=== PATIENT | female | born 2000 | race Caucasian/White ===

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

== ENCOUNTER 2023-10-23 12:29 | Emergency (ER) | payer BC ==
--- OUTSIDE RECORDS SUMMARY | 2023-10-23 12:33 | XMS REPORT | Continuity of Care Document ---
Author Name Unknown Address [address] [facility] [address]. [address] [place] [address] [facility] thconnect Address [address] [facility]. [address] [place] [address] Care Team Providers Care Radiology Physician Assistant Name Role Phone Unknown, Physician Primary Care Physician JESSICA Freitas Attending Clinician Unavailable Doctor Unassigned, [place] Attending Clinician U navailable 2, [facility] Lab Attending Clinician Unavailable Jessica Moctezuma MD Attending Clinician [phone] SHENA ESTEBAN Attending Clinician Unavailable Shena Esteban PA-C Attending Clinician [phone] KATELYNN Attending Clinician Unavailable DARREN SANDS Attending Clinician Unavailable ILEANA DOW Attending Clinician Unavailable Brandon Perez MD Attending Clinicia n Checo Ward MD, Leonard Attending Clinician [phone] Only, Adc Test Attending Clinician Unavailable Zina Drew MD Attending Clinician [phone] ZINA DREW Attending Clinician Unavailabl e Ultrasound, Adc Mfm Attending Clinician UnavailPauline Lynch MD Attending Clinician [phone] PAULINE PARK Attending Clinician Unavailable PAULINE PARK Attending Clinician Unavailable Ashley Pabon NP Attending Clinician [phone] Noni Gray RN Attending Clinician Unavailable MARIE CORBETT Attending Clinician Carmen Corbett MD, Marie Donis Attending Clinician + DARREN SANDS M.D. Attending Clinician Unavailab ILEANA Regalado, TALIB Attending Clinician UnavailNYDIA Porter Attending Clinician Unavailable BHAVANI LANGFORD Attending Clinician Unavailable JESSICA MOCTEZUMA Admitting Clinician Unavailable SHENA ESTEBAN Admitting Clinician Unavailable CHAPINLuciNIKOLENIKITA Admitting Clinician Unavailable Jessica Moctezuma MD Admitting Clinician [phone] Payers Payer Name Policy Type Policy Number Effective Date Expirati on Date Source [employer] PPO AND OUT OF STATE [id number] 2017 00:00:00 [place] OUT [place] [id number] 2017 00:00:00 [facility] [id number] 2021 00:00:[place] [id number] 2017 00:00:[place] [id number] 2017 00:00:00 Problems Condition Name Condition Details Condition Category Status Onset Date Resolution Date Last Treatment Date Treating Clinician Comments Source Abnormal vaginal bleeding Abnormal vaginal bleeding Disease Active 1- 00:00: 00 [facility] Allergic rhinitis Allergic rhinitis Disease Active 1-02 00:00: 00 [facility] Asthma Asthma Problem Active 2021-11 0-12 00:00: 00 [facility] Urinary tract infection Urinary tract infection Disease Active 4-18 00:00: 00 [facility] Initial encounter for management of contracept axel patch use Initial encounter for management of contracept axel patch use Disease Active - 00:00: 00 [facility] depression depression Disease Active 3- 00:00: 00 [facility] History of asthma History of asthma Disease Active 2020-11 1-16 00:00: 00 [facility] Obesity (BMI 30-39.9) Obesity (BMI 30-39.9) Disease Active 2020-11 1-15 00:00: 00 [facility] Injury of finger Injury of finger Disease Active 2018-11 2- 00:00: 00 [facility] Allergies, Adverse Reactions, Alerts Allergy Name Allergy Type Status Severity Reaction(s) Onset Date Inactive Date Treating Clinician Comments Source NO KNOWN ALLERGIE S Drug Class Active [facility] Social History Social Habit Start Date Stop Date Quantity Comments Source History of tobacco use Passive smoker [facility] of [facility] function 2023-09-06 00:00:00 2023-09-06 00:00:00 [facility] Exposure to SARS-CoV-2 (event) 2022-11-05 00:00:00 2022-11-15 14:48:00 Not sure [facility] Tobacco use and exposure 2022-09-06 00:00:00 2022-09-06 00:00:00 Smokeless tobacco non-user [facility] Alcohol intake 2022-07-06 00:00:00 2022-07-06 00:00:00 Lifetime non-drinker (finding) [facility] Sex Assigned At 2000 00:00:00 2000 00:00:00 [facility] Smoking Status Start Date Stop Date Source Never smoked tobacco [facility] Medications Ordered Medication Name Filled Medication Name Start Date Stop Date Current Medication? Ordering Clinician Indication Dosage Frequency Signature (SIG) Comments Components Source norethindro ne-e.estrad ioL-iron (LOESTRIN FE 1/20) 1 mg-20 mcg (21)/75 mg (7) tablet 2022-11 0 00:00: 00 Yes [id number] 1{tbl} Take 1 tablet by mouth in the morning. [facility] norethindro ne-e.estrad ioL-iron (LOESTRIN FE 1/20) 1 mg-20 mcg (21)/75 mg (7) tablet 2022-11 00:00: 00 Yes [id number] 1{tbl} Take 1 tablet by mouth in the morning. [facility] norethindro ne-e.estrad ioL-iron (LOESTRIN FE 1/20) 1 mg-20 mcg (21)/75 mg (7) tablet 2022-11 0 00:00: 00 Yes [id number] 1{tbl} Take 1 tablet by mouth in the morning. [facility] norethindro ne-e.estrad ioL-iron (LOESTRIN FE 1/20) 1 mg-20 mcg (21)/75 mg (7) tablet 2022-11 0 00:00: 00 Yes [id number] 1{tbl} Take 1 tablet by mouth in the morning. [facility] norelgestro min-ethinyl estradiol 150-35 mcg/24 hr patch 2021-11 0 00:00: 00 Yes [id number] 1{patch } Apply 1 Patch to skin weekly. [facility] norelgestro min-ethinyl estradiol 150-35 mcg/24 hr patch 2021-11 0 00:00: 00 Yes [id number] 1{patch } Apply 1 Patch to skin weekly. [facility] norelgestro min-ethinyl estradiol 150-35 mcg/24 hr patch 2021-11 0 00:00: 00 Yes [id number] 1{patch } Apply 1 Patch to skin weekly. [facility] norelgestro min-ethinyl estradiol 150-35 mcg/24 hr patch 2021-11 024 00:00: 00 Yes [id number] 1{patch } Apply 1 Patch to skin weekly. [facility] norelgestro min-ethinyl estradiol 150-35 mcg/24 hr patch 2021-11 0-24 00:00: 00 Yes [id number] 1{patch } Apply 1 Patch to skin weekly. [facility] norelgestro min-ethinyl estradiol 150-35 mcg/24 hr patch 2021-11 0-24 00:00: 00 Yes [id number] 1{patch } Apply 1 Patch to skin weekly. [facility] norelgestro min-ethinyl estradiol 150-35 mcg/24 hr patch 2021 0-24 00:00: 00 Yes [id number] 1{patch } Apply 1 Patch to skin weekly. [facility] norelgestro min-ethinyl estradiol 150-35 mcg/24 hr patch 2021-11 0-24 00:00: 00 Yes [id number] 1{patch } Apply 1 Patch to skin weekly. [facility] norelgestro min-ethinyl estradiol 150-35 mcg/24 hr patch 2021-11 0-24 00:00: 00 Yes [id number] 1{patch } Apply 1 Patch to skin weekly. [facility] norelgestro min-ethinyl estradiol 150-35 mcg/24 hr patch 2021-11 0-24 00:00: 00 Yes [id number] 1{patch } Apply 1 Patch to skin weekly. [facility] norelgestro min-ethinyl estradiol 150-35 mcg/24 hr patch 2021-11 0-24 00:00: 00 09-06 00:00 :00 No [id number] 1{patch } Apply 1 Patch to skin weekly. [facility] norelgestro min-ethinyl estradiol 150-35 mcg/24 hr patch 2021-11 0-24 00:00: 00 09-06 00:00 :00 No [id number] 1{patch } Apply 1 Patch to skin weekly. [facility] Nitrofurant oin&Nit. Macrocryst (MACROBID) 100 mg capsule 5-02 00:00: 00 03-21 04:59 :00 No [id number] 100mg Take 1 capsule by mouth 2 (two) times daily for 5 days. [facility] sulfamethox azole-trime thoprim 800-160 mg per tablet 4-18 00:00: 00 03-15 00:00 :00 No TAKE 1 TABLET BY MOUTH IN THE MORNING AND 1 TABLET IN THE EVENING. DO ALL THIS FOR 7 DAYS. [facility] norelgestro min-ethinyl estradiol 150-35 mcg/24 hr patch 3- 00:00: 00 Yes [id number] 1{patch } Apply 1 Patch to skin weekly. [facility] norelgestro min-ethinyl estradiol 150-35 mcg/24 hr patch 01-12 00:00: 00 Yes [id number] 1{patch } Apply 1 Patch to skin weekly. [facility] norelgestro min-ethinyl estradiol (Ortho-Evra ) 150-35 MCG/24HR 01-12 00:00: 00 Yes 1{patch } Place 1 patch on the skin. [facility] norelgestro min-ethinyl estradiol 150-35 mcg/24 hr patch 01-12 00:00: 00 09-06 00:00 :00 No [id number] 1{patch } Apply 1 Patch to skin weekly. [facility] norelgestro min-ethinyl estradiol 150-35 mcg/24 hr patch 01-12 00:00: 00 09-06 00:00 :00 No [id number] 1{patch } Apply 1 Patch to skin weekly. [facility] vitamin w/FA tablet 12-10 00:00: 00 03-15 00:00 :00 No [id number] 1{tbl} Take 1 tablet by mouth daily. [facility] docusate calcium 240 mg capsule 12-10 00:00: 00 03-15 00:00 :00 No [id number] 240mg Take 1 capsule by mouth once daily as needed for Constipati on. [facility] ferrous sulfate 325 mg (65 mg iron) tablet 12-10 00:00: 00 03-15 00:00 :00 No [id number] 325mg Take 1 tablet by mouth 2 (two) times daily. [facility] ibuprofen 600 mg tablet 12-10 00:00: 00 03-15 00:00 :00 No [id number] 600mg Take 1 tablet by mouth every 6 (six) hours as needed (Pain). Take with food or milk. [facility] albuterol sulfate HFA 90 mcg/actuati on aerosol inhaler Inhale 2 puffs every 4 hours by inhalation route as needed. for wheezing or SOB. albuterol sulfate HFA 90 mcg/actuati on aerosol inhaler Inhale 2 puffs every 4 hours by inhalation route as needed. for wheezing or SOB. No 2puff(s ) Q4H albuterol sulfate HFA 90 mcg/actuat ion aerosol inhaler Inhale 2 puffs every 4 hours by inhalation route as needed. for wheezing or SOB. [facility] h Program Bromfed DM 2 mg-30 mg-10 mg/5 mL oral syrup Take 10 mL every 4-6 hours by oral route as needed. for cough and congestion Bromfed DM 2 mg-30 mg-10 mg/5 mL oral syrup Take 10 mL every 4-6 hours by oral route as needed. for cough and congestion No 10mL Q5H Bromfed DM 2 mg-30 mg-10 mg/5 mL oral syrup Take 10 mL every 4-6 hours by oral route as needed. for cough and congestion [facility] Tamiflu 75 mg capsule Take 1 capsule twice a day by oral route for 5 days. Tamiflu 75 mg capsule Take 1 capsule twice a day by oral route for 5 days. No 1capsul e(s) BID Tamiflu 75 mg capsule Take 1 capsule twice a day by oral route for 5 days. [facility] Outre h Program Xulane 150 mcg-35 mcg/24 hr transdermal patch APPLY 1 PATCH TO SKIN WEEKLY Xulane 150 mcg-35 mcg/24 hr transdermal patch APPLY 1 PATCH TO SKIN WEEKLY No Xulane 150 mcg-35 mcg/24 hr transderma l patch APPLY 1 PATCH TO SKIN WEEKLY [facility] h Program Zithromax Z-Moshe 250 mg tablet TAKE 2 TABLETS (500 MG) BY ORAL ROUTE ONCE DAILY FOR 1 DAY THEN 1 TABLET (250 MG) BY ORAL ROUTE ONCE DAILY FOR 4 DAYS Zithromax Z-Moshe 250 mg tablet TAKE 2 TABLETS (500 MG) BY ORAL ROUTE ONCE DAILY FOR 1 DAY THEN 1 TABLET (250 MG) BY ORAL ROUTE ONCE DAILY FOR 4 DAYS No Zithromax Z-Moshe 250 mg tablet TAKE 2 TABLETS (500 MG) BY ORAL ROUTE ONCE DAILY FOR 1 DAY THEN 1 TABLET (250 MG) BY ORAL ROUTE ONCE DAILY FOR 4 DAYS [facility] Program Blisovi Fe 1/20 (28) 1 mg-20 mcg (21)/75 mg (7) tablet TAKE 1 TABLET BY MOUTH DAILY Blisovi Fe 1/20 (28) 1 mg-20 mcg (21)/75 mg (7) tablet TAKE 1 TABLET BY MOUTH DAILY No [place] Fe 1/20 (28) 1 mg-20 mcg (21)/75 mg (7) tablet TAKE 1 TABLET BY MOUTH DAILY [facility] Program fluconazole 150 mg tablet Take 1 tablet every day by oral route. fluconazole 150 mg tablet Take 1 tablet every day by oral route. No fluconazol e 150 mg tablet Take 1 tablet every day by oral route. [facility] h Program Lo Loestrin Fe 1 mg-10 mcg (24)/10 mcg (2) tablet TAKE 1 TABLET BY MOUTH EVERY DAY Lo Loestrin Fe 1 mg-10 mcg (24)/10 mcg (2) tablet TAKE 1 TABLET BY MOUTH EVERY DAY No Lo Loestrin Fe 1 mg-10 mcg (24)/10 mcg (2) tablet TAKE 1 TABLET BY MOUTH EVERY DAY [facility] Program metronidazo le 500 mg tablet Take 1 tablet twice a day by oral route for 7 days. metronidazo le 500 mg tablet Take 1 tablet twice a day by oral route for 7 days. No metronidaz ole 500 mg tablet Take 1 tablet twice a day by oral route for 7 days. [facility] Program Immunizations Ordered Immunization Name Filled Immunization Name Date Status Comments Source Influenza Virus Vaccine Quad IM, Preserv and ABX Free 6 MO-64 YRS 2022-09-06 00:00:00 Completed [facility] Influenza Virus Vaccine Quad IM, Preserv and ABX Free 6 MO-64 YRS 2022-09-06 00:00:00 Completed [facility] Influenza Virus Vaccine Quad IM, Preserv and ABX Free 6 MO-64 YRS 2022-09-06 00:00:00 Completed [facility] Influenza Virus Vaccine Quad IM, Preserv and ABX Free 6 MO-64 YRS 2022-09-06 00:00:00 Completed [facility] Influenza Virus Vaccine Quad IM, Preserv and ABX Free 6 MO-64 YRS 2022-09-06 00:00:00 Completed [facility] Influenza Virus Vaccine Quad IM, Preserv and ABX Free 6 MO-64 YRS 2022-09-06 00:00:00 Completed [facility] Influenza Virus Vaccine Quad IM, Preserv and ABX Free 6 MO-64 YRS 2022-09-06 00:00:00 Completed [facility] Influenza Virus Vaccine Quad IM, Preserv and ABX Free 6 MO-64 YRS 2022-09-06 00:00:00 Completed [facility] Influenza Virus Vaccine Quad IM, Preserv and ABX Free 6 MO-64 YRS 2022-09-06 00:00:00 Completed [facility] Influenza Virus Vaccine Quad IM, Preserv and ABX Free 6 MO-64 YRS 2022-09-06 00:00:00 Completed [facility] TDAP 2021-09-28 00:00:00 Completed [facility] Rho (d) Immune Globulin 2021-09-28 00:00:00 Completed [facility] TDAP 2021-09-28 00:00:00 Completed [facility] Rho (d) Immune Globulin 2021-09-28 00:00:00 Completed [facility] TDAP 2021-09-28 00:00:00 Completed [facility] Rho (d) Immune Globulin 2021-09-28 00:00:00 Completed [facility] TDAP 2021-09-28 00:00:00 Completed [facility] Rho (d) Immune Globulin 2021-09-28 00:00:00 Completed [facility] TDAP 2021-09-28 00:00:00 Completed [facility] Rho (d) Immune Globulin 2021-09-28 00:00:00 Completed [facility] TDAP 2021-09-28 00:00:00 Completed [facility] Rho (d) Immune Globulin 2021-09-28 00:00:00 Completed [facility] TDAP 2021-09-28 00:00:00 Completed [facility] Rho (d) Immune Globulin 2021-09-28 00:00:00 Completed [facility] TDAP 2021-09-28 00:00:00 Completed [facility] Rho (d) Immune Globulin 2021-09-28 00:00:00 Completed [facility] TDAP 2021-09-28 00:00:00 Completed [facility] Rho (d) Immune Globulin 2021-09-28 00:00:00 Completed [facility] TDAP 2021-09-28 00:00:00 Completed [facility] Rho (d) Immune Globulin 2021-09-28 00:00:00 Completed [facility] TDAP 2021-09-28 00:00:00 Completed [facility] Rho (d) Immune Globulin 2021-09-28 00:00:00 Completed [facility] Influenza Virus Vaccine 2021-09-11 00:00:00 Completed [facility] Influenza Virus Vaccine 2021-09-11 00:00:00 Completed [facility] Influenza Virus Vaccine 2021-09-11 00:00:00 Completed [facility] Influenza Virus Vaccine 2021-09-11 00:00:00 Completed [facility] Influenza Virus Vaccine 2021-09-11 00:00:00 Completed [facility] Influenza Virus Vaccine 2021-09-11 00:00:00 Completed [facility] Influenza Virus Vaccine 2021-09-11 00:00:00 Completed [facility] Influenza Virus Vaccine 2021-09-11 00:00:00 Completed [facility] Influenza Virus Vaccine 2021-09-11 00:00:00 Completed [facility] Influenza Virus Vaccine 2021-09-11 00:00:00 Completed [facility] Influenza Virus Vaccine 2021-09-11 00:00:00 Completed [facility] TDAP Unknown Completed [facility] Influenza Virus Vaccine Unknown Completed [facility] Rho (d) Immune Globulin Unknown Completed [facility] Influenza Virus Vaccine Quad IM, Preserv and ABX Free 6 MO-64 YRS (FLUCELVAX) Unknown Completed [facility] TDAP Unknown Completed [facility] Influenza Virus Vaccine Unknown Completed [facility] Rho (d) Immune Globulin Unknown Completed [facility] Influenza Virus Vaccine Quad IM, Preserv and ABX Free 6 MO-64 YRS (FLUCELVAX) Unknown Completed [facility] TDAP Unknown Completed [facility] Influenza Virus Vaccine Unknown Completed [facility] Rho (d) Immune Globulin Unknown Completed [facility] Influenza Virus Vaccine Quad IM, Preserv and ABX Free 6 MO-64 YRS (FLUCELVAX) Unknown Completed [facility] TDAP Unknown Completed [facility] Influenza Virus Vaccine Unknown Completed [facility] Rho (d) Immune Globulin Unknown Completed [facility] Influenza Virus Vaccine Quad IM, Preserv and ABX Free 6 MO-64 YRS (FLUCELVAX) Unknown Completed [facility] TDAP Unknown Completed [facility] Influenza Virus Vaccine Unknown Completed [facility] Rho (d) Immune Globulin Unknown Completed [facility] Influenza Virus Vaccine Quad IM, Preserv and ABX Free 6 MO-64 YRS (FLUCELVAX) Unknown Completed [facility] Vital Signs Vital Name Observation Time Observation Value Comments S ource Systolic blood pressure 2023-09-06 18:34:00 118 mm[Hg] [facility] Diastolic blood pressure 2023-09-06 18:34:00 75 mm[Hg] [facility] Heart rate 2023-09-06 18:34:00 89 /min [facility] Body temperature 2023-09-06 18:34:00 36.72 Raven [facility] Body height 2023-09-06 18:34:00 160 cm [facility] Body weight 2023-09-06 18:34:00 65.409 kg [facility] BMI 2023-09-06 18:34:00 25.54 kg/m2 [facility] Systolic blood pressure 2022-11-15 21:08:00 100 mm[Hg] [facility] Diastolic blood pressure 2022-11-15 21:08:00 67 mm[Hg] [facility] Heart rate 2022-11-15 21:08:00 76 /min [facility] Body temperature 2022-11-15 21:08:00 36.56 Raven [facility] Body height 2022-11-15 21:08:00 160 cm [facility] Body weight 2022-11-15 21:08:00 59.421 kg [facility] BMI 2022-11-15 21:08:00 23.21 kg/m2 [facility] Systolic blood pressure 2022-09-06 18:21:00 111 mm[Hg] [facility] Diastolic blood pressure 2022-09-06 18:21:00 73 mm[Hg] [facility] Heart rate 2022-09-06 18:21:00 73 /min [facility] Body temperature 2022-09-06 18:21:00 36.67 Raven [facility] Body height 2022-09-06 18:21:00 160 cm [facility] Body weight 2022-09-06 18:21:00 60.51 kg [facility] BMI 2022-09-06 18:21:00 23.63 kg/m2 [facility] BP Diastolic 2022-08-25 00:00:00 80 mm[Hg] [place] [facility] Height 2022-08-25 00:00:00 63 [in_i] [place] [facility] [facility] BMI (Body Mass Index) 2022-08-25 00:00:00 24.3 kg/m2 [place] [facility] BP Systolic 2022-08-25 00:00:00 114 mm[Hg] [place] [facility] Body Weight 2022-08-25 00:00:00 2194 [oz_av] [place] [facility] Body height 2022-07-06 15:49:00 160 [facility] Body weight 2022-07-06 15:49:00 58[facility]968 [facility] BMI 2022-07-06 15:49:00 23.03 [facility] pressure 2022-03-15 19:09:00 108 mm[Hg] [facility] Diastolic blood pressure 2022-03-15 19:09:00 66 mm[Hg] [facility] Heart rate 2022-03-15 19:09:00 72 /min [facility] Body temperature 2022-03-15 19:09:00 37 Raven [facility] Respiratory rate 2022-03-15 19:09:00 16 /min [facility] Body height 2022-03-15 19:09:00 160 cm [facility] Body weight 2022-03-15 19:09:00 62.313 kg [facility] BMI 2022-03-15 19:09:00 24.33 kg/m2 [facility] Procedures Procedure Date / Time Performed Performing Clinician Source [facility] PATIENT FINANCIAL POLICY 2023-09-06 18:21:27 Doctor Unassigned, [place] [facility] POCT TEST 2023-09-06 00:00:00 Jessica Moctezuma [facility] US PELVIS COMPLETE WITH TRANSVAGINAL 2022-11-19 21:46:55 Shena Esteban [facility] ASSIGNMENT OF BENEFITS 2022-11-15 20:47:18 Docto r Unassigned, [place] [facility] POCT TEST 2022-11-15 00:00:00 Anselmo Esteban [facility] FLU VACC ([id number]), 6 MO-64 YRS, .5ML, IM, QUAD (FLUCELVAX) 2022-09-06 18:33:10 Jessica Moctezuma [facility] CONSENT FOR CONTRACEPTION 2022-09-06 05:01:00 Doctor Unassigned, [place] [facility] POCT TEST 2022-09-06 00:00:00 Jessica Moctezuma [facility] POCT URINALYSIS W/O SPECIFIC GRAVITY 2022-03-15 00:00:00 Jessica Moctezuma [facility] Plan of Care Planned Activity Planned Date Details Comments Source Diagnostic Test Pending 2022-08-25 00:00:00 influenza virus A + B and SARS CoV 2 (COVID-19) and RSV RNA panel, DAVE+probe, respiratory specimen [code = influenza virus A + B and SARS CoV 2 (COVID-19) and RSV RNA panel, DAVE+probe, respiratory specimen] [facility] Diagnostic Test Pending 2022-08-25 00:00:00 rapid strep group A, throat [code = rapid strep group A, throat] [facility] Encounters Start Date/Time End Date/Time Encounter Type Admission Type Attending Clinicians Care Facility Care Department Encounter ID Source 2022-08-23 06:51:12 Outpatient [facility] [id number] [facility] 2022-07-22 12:04:36 Outpatient [facility] [id number] [facility] 2022-07-09 11:17:07 Outpatient [facility] [id number] [facility] 2022-07-06 09:49:13 Outpatient [facility] [id number] [facility] 2022-07-01 17:39:17 Outpatient [facility] [id number] [facility] 2022-06-28 11:10:49 Outpatient [facility] [id number] [facility] 2021-11-25 16:52:[address] [facility] KACEY [id number] [facility] 2021-10-08 19:10:[address] [facility] [id number] [facility] 2023-09-07 00:00:00 2023-09-07 00:00:00 Patient Secure Msg Doctor Unassigned, [place] [facility] [id number] [facility] 2023-09-06 14:15:00 2023-09-06 14:30:00 Swimming Pool Service Technician Visit 2, Adc Lab Jessica Moctezuma [facility] [id number] [facility] 2023-09-06 13:30:00 2023-09-06 13:48:51 Outpatient R JESSICA MOCTEZUMA [facility] [id number] [facility] 2023-09-06 13:30:00 2023-09-06 13:48:51 Office Visit Jessica Moctezuma [place] [id number] [facility] 2023-09-06 00:00:00 2023-09-06 00:00:00 Orders Only Doctor Unassigned, [place] [facility] [id number] [facility] 2022-11-22 00:00:00 2022-11-22 00:00:00 Telephone Jessica Moctezuma [facility] 1.2.840.114 350.1.13.10 4.2.7.2.686 [id number] 134 [id number] [facility] 2022-11-19 14:53:19 2022-11-19 23:59:00 Outpatient German ESTEBAN SHENA [facility] [id number] [facility] 2022-11-19 14:53:19 2022-11-19 23:59:00 Hospital Encounter Digna [facility] 1.2.840.114 350.1.13.10 4.2.7.2.686 [id number] [facility] 2022-11-15 15:00:00 2022-11-15 15:25:06 Office Visit Digna [facility] 1.2.840.114 350.1.13.10 4.2.7.2.686 [id number] [facility] 2022-11-15 15:00:00 2022-11-15 15:25:06 Outpatient German ESTEBAN [facility] [id number] [facility] 2022-11-15 00:00:00 2022-11-15 00:00:00 Orders Only Doctor Unassigned, [place] [facility] 1.2.840.114 350.1.13.10 4.2.7.2.686 [id number] [facility] 2022-11-15 00:00:00 2022-11-15 00:00:00 Telephone Shena Esteban [facility] 1.2.840.114 350.1.13.10 4.2.7.2.686 [id number] 134 [id number] [facility] 2022-09-06 14:30:00 2022-09-06 14:45:00 Swimming Pool Service Technician Visit 2, Adc Lab Jessica Moctezuma [facility] BUILDING 1.2.840.114 350.1.13.10 4.2.7.2.686 [id number] [facility] 2022-09-06 13:30:00 2022-09-06 14:13:20 Outpatient R JESSICA MOCTEZUMA [facility] [id number] [facility] 2022-09-06 13:30:00 2022-09-06 14:13:20 Office Visit Jessica Moctezuma [facility] 1.2.840.114 350.1.13.10 4.2.7.2.686 [id number] 134 [id number] [facility] 2022-09-06 00:00:00 2022-09-06 00:00:00 Orders Only Doctor Unassigned, [place] [facility] 1.2.840.114 350.1.13.10 4.2.7.2.686 [id number] [facility] 2022-08-28 00:00:00 2022-08-28 00:00:00 Outpatient LISTER_MELI [facility] [id number] [facility] 2022-08-25 00:00:00 2022-08-25 00:00:00 Outpatient LISTER_MELI [facility] [id number] [facility] 2022-08-25 00:00:00 2022-08-25 00:00:00 Osmani Mejia: [address] [place] [address] , Ph. [facility] [id number] Kathrine pond [facility] 2022-07-26 15:00:00 2022-07-26 15:00:00 Outpatient DARREN SANDS [facility] [id number] [facility] 2022-07-06 00:00:00 2022-07-06 11:40:12 Outpatient [facility] [id number] [facility] 2022-07-06 10:30:00 2022-07-06 11:38:32 Office Visit Darren Sands [facility] [place] 1..840.114 350.1.13.58 9.2.7.2.686 [id number] [facility] 2022-06-29 11:00:00 2022-06-29 11:00:00 Outpatient ILEANA DOW [facility] [id number] [facility] 2022-03-15 13:45:00 2022-03-15 14:40:48 Outpatient R JESSICA MOCTEZUMA [facility] [id number] [facility] 2022-03-15 13:45:00 2022-03-15 14:40:48 Office Visit Jessica Moctezuma [facility] 1..840.114 350.1.13.10 4.2.7.2.686 [id number] [facility] 2022-03-15 13:45:00 2022-03-15 14:40:48 Outpatient R JESSICA MOCTEZUMA [facility] [id number] [facility] 2022-03-15 00:00:00 2022-03-15 00:00:00 Telephone Jessica Moctezuma [facility] 1..840.114 350.1.13.10 4.2.7.2.686 [id number] [facility] 2022-03-11 00:00:00 2022-03-11 00:00:00 Refill Jessica Moctezuma [facility] 1.284.114 350.1.13.10 4.2.7.2.686 [id number] [facility] 2022-03-08 02:38:00 2022-03-08 02:38:00 Outpatient LISTER_MELI [facility] [id number] [facility] 2022-02-16 13:45:00 2022-02-16 14:01:10 Office Visit Jessica Moctezuma [facility] 1.284.114 350.1.13.10 4.2.7.2.686 [id number] [facility] 2022-02-16 13:45:00 2022-02-16 14:01:10 Outpatient N JESSICA MOCTEZUMA [facility] [id number] [facility] 2022-02-16 13:45:00 2022-02-16 13:45:00 Outpatient N JESSICA MOCTEZUMA [facility] [id number] [facility] 2022-01-12 13:00:00 2022-01-12 13:16:10 Outpatient R JESSICA MOCTEZUMA [facility] [id number] [facility] 2022-01-12 13:00:00 2022-01-12 13:16:10 Routine Visit Jessica Moctezuma [facility] 1.284.114 350.1.13.10 4.2.7.2.686 [id number] 134 [id number] [facility] 2022-01-12 00:00:00 2022-01-12 00:00:00 Orders Only Doctor Unassigned, [place] [facility] 1.84.114 350.1.13.10 4.2.7.2.686 [id number] [facility] 2021-12-08 11:50:00 2021-12-10 17:30:00 Inpatient P JESSICA MOCTEZUMA [facility] KACE[facility] [id number] [facility] 2021-12-08 11:50:00 2021-12-10 17:30:00 Hospital Encounter Jessica Moctezuma [facility] 1.2.840.114 350.1.13.10 4.2.7.2.686 [id number] [facility] 2021-12-08 11:50:00 2021-12-10 17:30:00 Inpatient P JESSICA MOCTEZUMA [facility] [id number] [facility] 2021-12-09 05:52:00 2021-12-09 17:02:00 Anesthesia Event Brandon Britt Leonard [facility] 1.2.840.114 350.1.13.10 4.2.7.2.686 [id number] [facility] 2021-12-07 10:30:00 2021-12-07 10:45:00 Laboratory Only Only, Adc Test Alyssa [facility] 1.2.840.114 350.1.13.10 4.2.7.2.686 [id number] [facility] 2021-12-07 10:30:00 2021-12-07 10:30:00 Outpatient German TURNERMIGUEL ZINA [facility] [id number] [facility] 2021-12-07 10:30:00 2021-12-07 10:30:00 Outpatient German [facility]IGUEL [facility] [id number] [facility] 2021-12-03 12:07:00 2021-12-03 17:00:00 Outpatient P JESSICA MOCTEZUMA [facility] [id number] [facility] 2021-12-03 12:07:00 2021-12-03 17:00:00 Hospital Encounter Jessica Moctezuma [facility] 1.2.840.114 350.1.13.10 4.2.7.2.686 [id number] [facility] 2021-12-03 00:00:00 2021-12-03 00:00:00 Telephone Jessica Moctezuma [facility] 1.2.840.114 350.1.13.10 4.2.7.2.686 [id number] 134 [id number] [facility] 2021-12-02 11:00:00 2021-12-02 11:23:28 Outpatient R JESSICA MOCTEZUMA [facility] [id number] [facility] 2021-12-02 11:00:00 2021-12-02 11:23:28 Routine Visit Jessica Moctezuma [facility] 1.2.840.114 350.1.13.10 4.2.7.2.686 [id number] [facility] 2021-12-01 10:15:00 2021-12-01 11:00:00 Swimming Pool Service Technician Visit Ultrasound, Adc Pauline Hill [facility] 1.2.840.114 350.1.13.10 4.2.7.2.686 [id number] 134 [id number] [facility] 2021-12-01 10:15:00 2021-12-01 10:54:25 Swimming Pool Service Technician Visit Ultrasound, Adc Pauline Hill [facility] 1.2.840.114 350.1.13.10 4.2.7.2.686 [id number] 134 [id number] [facility] 2021-12-01 10:15:00 2021-12-01 10:15:00 Outpatient P PAULINE PARK SHANNON [facility] [id number] [facility] 2021-11-26 13:45:00 2021-11-26 14:16:01 Outpatient R JESSICA MOCTEZUMA [facility] [id number] [facility] 2021-11-26 13:45:00 2021-11-26 14:16:01 Routine Visit Jessica Moctezuma [facility] 1.20.114 350.1.13.10 4.2.7.2.686 [id number] 134 [id number] [facility] 2021-11-22 00:32:00 2021-11-22 07:05:00 [facility] [id number] [facility] 2021-11-22 00:32:00 2021-11-22 07:05:00 Emergency Drever, [facility] 1.20.114 350.1.13.10 4.2.7.2.686 [id number] [facility] 2021-11-19 14:00:00 2021-11-19 14:00:00 Swimming Pool Service Technician Visit 2, Adc Lab Jessica Moctezuma [facility] BUILDING 1.2.114 350.1.13.10 4.2.7.2.686 [id number] [facility] 2021-11-19 13:00:00 2021-11-19 13:49:11 Outpatient R JESSICA MOCTEZUMA [facility] [id number] [facility] 2021-11-19 13:00:00 2021-11-19 13:49:11 Routine Visit Jessica Moctezuma [facility] BUILDING 1.2.114 350.1.13.10 4.2.7.2.686 [id number] 134 [id number] [facility] 2021-11-19 00:00:00 2021-11-19 00:00:00 Orders Only Doctor Unassigned, [place] [facility] 1.20.114 350.1.13.10 4.2.7.2.686 [id number] [facility] 2021-11-11 14:50:00 2021-11-11 19:52:00 Outpatient P JESSICA MOCTEZUMA [facility] [id number] [facility] 2021-11-11 14:50:00 2021-11-11 19:52:00 Hospital Encounter Jessica Moctezuma [facility] 1.2.840.114 350.1.13.10 4.2.7.2.686 [id number] [facility] 2021-11-11 00:00:00 2021-11-11 00:00:00 Patient Secure Noni Davis [facility] 1.2.840.114 350.1.13.10 4.2.7.2.686 [id number] 134 [id number] [facility] 2021-11-11 00:00:00 2021-11-11 00:00:00 Telephone Jessica Moctezuma [facility] 1.2.840.114 350.1.13.10 4.2.7.2.686 [id number] 134 [id number] [facility] 2021-11-09 11:49:00 2021-11-09 16:12:00 Outpatient X JESSICA MOCTEZUMA [facility] [id number] [facility] 2021-11-09 11:49:00 2021-11-09 16:12:00 Emergency Jessica Moctezuma [facility] 1.2.840.114 350.1.13.10 4.2.7.2.686 [id number] [facility] 2021-11-05 13:15:00 2021-11-05 14:03:39 Outpatient R JESSICA MOCTEZUMA [facility] [id number] [facility] 2021-11-05 13:15:00 2021-11-05 14:03:39 Routine Visit Jessica Moctezuma [facility] 1.2.840.114 350.1.13.10 4.2.7.2.686 [id number] [facility] 2021-11-03 10:00:00 2021-11-03 10:33:52 Outpatient P MARIE CORBETT [facility] [id number] [facility] 2021-11-03 10:00:00 2021-11-03 10:33:52 Swimming Pool Service Technician Visit Ultrasound, Adc Mfm Marie Corbett Ikuvbogitaqueria [facility] 1.2.840.114 350.1.13.10 4.2.7.2.686 [id number] 134 [id number] [facility] 2021-10-22 10:45:00 2021-10-22 11:10:37 Outpatient R JESSICA MOCTEZUMA [facility] [id number] [facility] 2021-10-22 10:15:54 2021-10-22 11:10:37 Routine Visit Jessica Moctezuma [facility] 1.2.840.114 350.1.13.10 4.2.7.2.686 [id number] [facility] 2021-10-20 00:00:00 2021-10-20 00:00:00 Orders Only Doctor Unassigned, [place] [facility] 1.2.840.114 350.1.13.10 4.2.7.2.686 [id number] [facility] 2021-10-12 15:45:00 2021-10-12 15:08:48 Outpatient R RHIANNA JESSICA [facility] [id number] [facility] 2021-10-12 15:45:00 2021-10-12 15:08:48 [facility] [id number] [facility] 2021-10-12 14:48:06 2021-10-12 15:08:48 [facility]ine [facility] 1.2.840.114 350.1.13.10 4.2.7.2.686 [id number] [facility] 2021-10-08 14:38:00 2021-10-08 19:07:00 Outpatient P JESSICA MOCTEZUMA [facility] [id number] [facility] 2021-10-08 14:38:00 2021-10-08 19:07:00 [facility] [id number] [facility] 2021-10-08 14:38:00 2021-10-08 19:07:00 Hospital Encounter Jessica Moctezuma [facility] 1.2.840.114 350.1.13.10 4.2.7.2.686 [id number] [facility] 2021-10-08 00:00:00 2021-10-08 00:00:00 Orders Only Doctor Unassigned, [place] [facility] 1.2.840.114 350.1.13.10 4.2.7.2.686 [id number] [facility] 2021-09-30 00:00:00 2021-09-30 00:00:00 Telephone Jessica Moctezuma [facility] 1.2.840.114 350.1.13.10 4.2.7.2.686 [id number] [facility] 2021-09-28 14:00:00 2021-09-28 15:08:28 Outpatient R JESSICA MOCTEZUMA [facility] [id number] [facility] 2021-09-28 13:06:12 2021-09-28 15:08:28 Initial Visit Jessica Moctezuma [facility] 1.2.840.114 350.1.13.10 4.2.7.2.686 [id number] 134 [id number] [facility] 2021-09-28 00:00:00 2021-09-28 00:00:00 Orders Only Doctor Unassigned, [place] [facility] 1.2.840.114 350.1.13.10 4.2.7.2.686 [id number] [facility] 2021-09-22 00:00:00 2021-09-22 00:00:00 Telephone Jessica Moctezuma [facility] 1.2.840.114 350.1.13.10 4.2.7.2.686 [id number] [facility] 2021-09-14 00:00:00 2021-09-14 00:00:00 Orders Only Doctor Unassigned, [place] [facility] 1.2.840.114 350.1.13.10 4.2.7.2.686 [id number] [facility] 2021-08-25 00:00:00 2021-08-25 00:00:00 Orders Only Doctor Unassigned, [place] [facility] 1.2.840.114 350.1.13.10 4.2.7.2.686 [id number] [facility] 2021-02-08 11:52:00 2021-02-08 11:52:00 Outpatient CHAPIN_NIKOLEI MAN[facility]IND[facility] [id number] [facility] 2021-02-06 02:51:00 2021-02-06 02:51:00 Outpatient CHAPIN_NIKOLEI [facility] [id number] [facility] 2021-02-06 00:00:00 2021-02-06 00:00:00 Sherrill Perez, MEAT SUPERVISOR: [address], [place] [address] , Ph. [facility] SKIDDER OPERATOR [id number] Kathrine da [facility] h Program 2018-07-26 16:30:00 2018-07-26 16:30:00 Appointmen t; DARREN SANDS M.D. SHAH, VISHAL, M.D. [facility] [id number] [facility] 2018-06-20 08:15:00 2018-06-20 08:15:00 Appointmen t; DARREN SANDS M.D. SHAH, VISHAL, M.D. [facility] [id number] [facility] 2018-04-18 08:15:00 2018-04-18 08:15:00 Appointmen t; ILEANA DOW NP MCDOUGALL, SEAN, NP [facility] [id number] [facility] 2018-03-07 08:15:00 2018-03-07 08:15:00 Appointmen t; ILEANA DOW NP MCDOUGALL, SEAN, NP [facility] [id number] [facility] 2018-02-06 08:15:00 2018-02-06 08:15:00 Appointmen t; DARREN SANDS M.D. SHAH, VISHAL, M.D. [facility] [id number] [facility] 2018-01-20 09:15:00 2018-01-20 09:15:00 Appointmen t; DARREN SANDS M.D. SHAH, VISHAL, M.D. [facility] [id number] [facility] 2017-12-28 15:15:00 2017-12-28 15:15:00 Appointmen t; DARREN SANDS M.D. SHAH, VISHAL, M.D. [facility]TP [id number] [facility] 2017-08-23 13:45:00 2017-08-23 13:45:00 Appointmen t; NYDIA LINK NELSON [facility] [id number] [facility] 2017-07-12 10:30:00 2017-07-12 10:30:00 Appointmen t; DARREN SANDS M.D. SHAH, VISHAL, M.D. [facility] [id number] [facility] 2017-05-19 13:30:00 2017-05-19 13:30:00 DARREN Malin M.D. SHAH, VISHAL, M.D. [facility] [id number] [facility] 2017-05-06 11:00:00 2017-05-06 11:00:00 BHAVANI Lang JEFFREY [facility] [id number] [facility] Results Test Description Test Time Test Comments Results Result Co mments Source [facility] [id number] 18:35:00* Test Item Value Reference Range Interpretation Comme nts POCT PREG (test code = 1605) Negative On board controls acceptable with C Line (test code = 3574) Yes POCT PREG LOT # (test code = 3575) POCT PREG TEST DATE ( test code = 3576) [facility] [id number] 21:27:00* Test Item Value Reference Range Interpretation Comme nts POCT PREG (test code = 1605) Negative On board controls acceptable with C Line (test code = 3574) Yes POCT PREG LOT # (test code = 3575) POCT PREG TEST DATE ( test code = 3576) [facility] [id number] 21:27:00* Test Item Value Reference Range Interpretation Comme nts POCT PREG (test code = 1605) Negative On board controls acceptable with C Line (test code = 3574) Yes POCT PREG LOT # (test code = 3575) POCT PREG TEST DATE ( test code = 3576) [facility] [id number] 19:11:00* Test Item Value Reference Range Interpretation Comme nts POCT PREG (test code = 1605) Negative On board controls acceptable with C Line (test code = 3574) Yes POCT PREG LOT # (test code = 3575) POCT PREG TEST DATE ( test code = 3576) [facility] [id number] 19:11:00* Test Item Value Reference Range Interpretation Comme nts POCT PREG (test code = 1605) Negative On board controls acceptable with C Line (test code = 3574) Yes POCT PREG LOT # (test code = 3575) POCT PREG TEST DATE ( test code = 3576) [facility] URINALYSIS W/O SPECIFIC [id number] 19:13:00* Test Item Value Reference Range Interpretation Comme nts POCT PH U (test code = 3254) 6 mg/dl 5-8 POCT U LEUK EST (test code = 3263) 1+ Negative - Negative POCT U NIT (test code = 3262) negative Negative - Negati ve POCT U PROT (test code = 3259) negative Negative - Negat axel POCT U GLU (test code = 3256) negative Negative - Negati ve POCT U KETONE (test code = 3258) negative Negative - Neg ative POCT U BLD (test code = 3257) negative Negative - Negati ve [facility]
[2023-10-23 13:56] LABS: Absolute Lymphocytes (CBC) 2.7 K/uL (0.7-4.9); Hematocrit 41.2 % (36.0-45.0); Lymphocytes % 31.7 % (15.3-44.8); MCV 88.3 fL (80-100); MPV 8.3 fL (7.6-11.3); Platelets 236 thou/uL (152-406); RBC Red Blood Cell Count 4.67 M/uL (3.86-4.86)
[2023-10-23] MEDS ORDERED: FAMOTIDINE 20 MG/2 ML VIAL IV ONE (14:04)
[2023-10-23] MEDS ORDERED: ONDANSETRON 4 MG/2 ML VIAL ONE (14:04)
[2023-10-23 14:07] LABS: Specific Gravity 1.018 (1.005-1.030)
[2023-10-23 14:08] LABS: Specific Gravity 1.018 (1.005-1.030); Urine Bilirubin NEGATIVE (Negative); Urine Blood Negative (Negative); Urine Clarity Clear (Clear); Urine Color Light-Yellow (Yellow); Urine Glucose NEGATIVE (Negative); Urine Protein NEGATIVE (Negative); Urine Urobilinogen Normal (Normal); Urine pH 6.5 (5.0-7.0)
[2023-10-23 14:12] LABS: Bilirubin Total 0.6 mg/dL (0.2-1.0); Potassium 3.8 mEq/L (3.5-5.1); Protein, Total 7.9 g/dL (6.4-8.2)
--- NOTE | 2023-10-23 14:42 | RAD REPORT ---
EXAM DESCRIPTION: CTAbdomen Pelvis W Contrast - 10/23/2023 2:34 pm CLINICAL HISTORY: Abdominal pain. ABD PAIN COMPARISON: <Comparisons> TECHNIQUE: Biphasic CT imaging of the abdomen and pelvis was performed with 100 ml non-ionic IV cont rast. All CT scans are performed using dose optimization technique as appropriate and may include automated exposure control or mA/KV adjustment according to patient size. FINDINGS: The lung bases are clear. The liver, spleen, pancreas, adrenal glands and kidneys are within normal limits. No bowel obstruction, free air, free fluid or abscess. The appendix is normal. No evidence of signi ficant lymphadenopathy. Trace pelvic free fluid, likely physiologic. No suspicious bony findings. IMPRESSION: No acute intra-abdominal or pelvic finding.
--- NOTE | 2023-10-23 15:13 | EDPHYS ---
Physician Documentation [facility] Name: Monique Mabry Age: 23 yrs Sex: Female : 2000 Arrival Date: 10/23/2023 Time: 12:29 Bed 12 Private MD: ED Physician Gustavo Connell HPI: 10/23 15:13 This 23 yrs old Female presents to ER via Ambulatory with complaints of Abdominal Pain, ms3 Nausea. 15:13 23-year-old female with no past medical history presents to the emergency department ms3 for lower abdominal pain. Patient states pain is greater in the right than the left. Patient notes she did have nausea this morning. Patient denies vomiting. Patient states her discomfort is an 8/10. Patient denies alleviating or inciting factors. AGENCY SERVICE COORDINATOR: 15:31 LMP N/A - control method, Not me1 Historical: - Allergies: 12:39 NKA; nj1 - PMHx: 12:39 None; nj1 - Immunization history:: Client reports having NOT received the Covid vaccine. - Social history:: Smoking status: Patient denies any tobacco usage or history of. ROS: 15:13 Constitutional: Negative for fever, and chills. Neck: Negative for injury, pain, and ms3 swelling, Cardiovascular: Negative for chest pain, and palpitations. Respiratory: Negative for shortness of breath, cough, wheezing, and pleuritic chest pain, 15:13 MS/Extremity: Negative for injury and deformity, Skin: Negative for injury, rash, and discoloration, 15:13 Abdomen/GI: Positive for abdominal pain, nausea and vomiting, diarrhea, 15:13 All other systems are negative, Exam: 15:13 Constitutional: This is a well developed, well nourished patient who is awake, alert, ms3 and in no acute distress. Head/Face: Normocephalic, atraumatic. Chest/axilla: Normal chest wall appearance and motion. Nontender with no deformity. Cardiovascular: Regular rate and rhythm with a normal S1 and S2. No gallops, murmurs, or rubs. Normal PMI, no JVD. No pulse deficits. Respiratory: Lungs have equal breath sounds bilaterally, clear to auscultation and percussion. No rales, rhonchi or wheezes noted. No increased work of breathing, no retractions or nasal flaring. 15:13 Abdomen/GI: Inspection: abdomen appears normal, Bowel sounds: normal, Palpation: moderate abdominal tenderness, in the right lower quadrant, Vital Signs: 12:37 BP 126 / 82; Pulse 85; Resp 16; Temp 98.4(O); Pulse Ox 100% ; Weight 64.86 kg; Height 5 nj1 ft. 3 in. ; Pain 9/10; 15:30 BP 108 / 80; Pulse 83; Resp 16; Pulse Ox 100% on R/A; me1 12:37 Body Mass Index 25.33 (64.86 kg, 160.02 cm) nj1 12:37 Pain Scale: Adult nj1 MDM: 12:42 Patient medically screened. ms3 15:13 Differential diagnosis: Nonspecific abd pain, gastritis, appendicitis. Data reviewed: ms3 vital signs, nurses notes, lab test result(s), radiologic studies, and as a result, I will discharge patient. I considered the following discharge prescriptions or medication management in the emergency department Medications were administered in the Emergency Department. See MAR. Counseling: I had a detailed discussion with the patient and/or guardian regarding the historical points, exam findings, and any diagnostic results supporting the discharge/admit diagnosis, lab results, radiology results, the need for outpatient follow up, to return to the emergency department if symptoms worsen or persist or if there are any questions or concerns that arise at home. Special discussion: Based on the patient's Hx, exam, and Dx evaluation, there is no indication for emergent surgery or inpatient Tx. It is understood by the patient/guardian that if the Sx's persist or worsen they need to return immediately for re-evaluation. ED course: Discussed labs and CT scan with patient. Patient to follow-up with primary care physician in 2 to 3 days. Patient understands and agrees with plan. All questions were answered. Return precautions discussed include worsening symptoms, or any other concerns. On reevaluation patient symptoms improved, patient is alert and oriented x 4, no apparent distress, nontoxic-appearing, ambulatory number department, speaking full sentences. 10/23 12:43 Order name: CBC with Diff; Complete Time: 14:34 ms3 10/23 12:43 Order name: CMP; Complete Time: 14:34 ms3 10/23 12:43 Order name: Lipase; Complete Time: 14:34 ms3 10/23 12:43 Order name: Urinalysis w/ reflexes; Complete Time: 14:34 ms3 10/23 12:43 Order name: Test, Urine; Complete Time: 14:34 ms3 10/23 12:43 Order name: CT Abd/Pelvis - IV Contrast Only; Complete Time: 14:48 ms3 10/23 12:43 Order name: IV Saline Lock; Complete Time: 13:48 ms3 10/23 12:43 Order name: Labs collected and sent; Complete Time: 13:48 ms3 Administered Medications: 13:59 Drug: Famotidine IVP 20 mg IVP once; dilute with 10 mL 0.9% NaCl; give over 2 minutes iw Route: IVP; Site: right antecubital; 15:17 Follow up: Response: No adverse reaction me1 13:59 Drug: Ondansetron IVP 4 mg IVP once; over 2 minutes Route: IVP; Site: right antecubital;iw 15:17 Follow up: Response: No adverse reaction; Marked relief of symptoms me1 Disposition Summary: 10/23/23 15:13 Discharge Ordered Notes: Location: Home ms3 Condition: Fair ms3 Diagnosis - Lower abdominal pain, unspecified ms3 - Nausea with vomiting, unspecified ms3 Followup: ms3 - With: Tez Caraballo DO - When: 2 - 3 days - Reason: Re-evaluation by your physician Discharge Instructions: - Discharge Summary Sheet ms3 - Abdominal Pain, Adult ms3 - Nausea and Vomiting, Adult ms3 Forms: - Medication Reconciliation Form ms3 - Thank You Letter ms3 - Antibiotic Education ms3 - Prescription Opioid Use ms3 - Patient Portal Instructions ms3 - Leadership Thank You Letter ms3 Prescriptions: - ondansetron 4 mg Oral Tablet,disintegrating - take 1 tablet ORAL route every 8 hours; 15 tablet; Refills: 0, Product ms3 Selection Permitted Signatures: Dispatcher [employer] Danitza Gomez, RN RN iw Gustavo Connell DO DO ms3 Leticia Maurice RN RN nj1 Vanessa White RN me1
--- NOTE | 2023-10-23 15:13 | ER ---
Nurse's Notes [facility] Name: Monique Mabry Age: 23 yrs Sex: Female : 2000 Arrival Date: 10/23/2023 Time: 12:29 Bed 12 Private MD: Diagnosis: Lower abdominal pain, unspecified;Nausea with vomiting, unspecified Presentation: 10/23 12:37 Chief complaint: Patient states: Low abdominal pain and nausea today. Denies nj1 diarrhea/fever. Coronavirus screen: Vaccine status: Patient reports being unvaccinated. Ebola Screen: Patient denies travel to an Ebola-affected area in the 21 days before illness onset. Initial Sepsis Screen: Does the patient meet any 2 criteria? No. Patient's initial sepsis screen is negative. Does the patient have a suspected source of infection? No. Patient's initial sepsis screen is negative. Risk Assessment: Do you want to hurt yourself or someone else? Patient reports no desire to harm self or others. Onset of symptoms was October 23, 2023. 12:37 Method Of Arrival: Ambulatory [facility] 12:37 Acuity: BOUCHRA 3 [facility] NETWORK ADMINISTRATOR: 15:31 LMP N/A - control method, Not [facility] Historical: - Allergies: 12:39 NKA; nj1 - PMHx: 12:39 None; nj1 - Immunization history:: Client reports having NOT received the Covid vaccine. - Social history:: Smoking status: Patient denies any tobacco usage or history of. Screenin:30 [facility] ED Fall Risk Assessment (Adult) History of falling in the last 3 months, ms1 including since admission No falls in past 3 months (0 pts) Confusion or Disorientation No (0 pts) Intoxicated or Sedated No (0 pts) Impaired Gait No (0 pts) Mobility Assist Device Used No (0 pt) Altered Elimination No (0 pt) Score/Fall Risk Level 0 - 2 = Low Risk Maintained a safe environment, Provided non-skid footwear, Hourly rounding (assess needs \T\ fall precautionary measures) done. Abuse screen: Denies threats or abuse. Nutritional screening: No deficits noted. Tuberculosis screening: No symptoms or risk factors identified. Assessment: 12:30 General: Appears uncomfortable, well groomed, well developed, well nourished, Behavior me1 is calm, cooperative, appropriate for age, Reports suprapubic abdominal pain that shoots to RLQ. c/o nausea. Denies fever/constipation/diarrhea. Pain: Complains of pain in suprapubic area Pain radiates to right lower quadrant. Neuro: Level of Consciousness is awake, alert, obeys commands, Oriented to person, place, time, situation, Appropriate for age. Cardiovascular: Capillary refill < 3 seconds Patient's skin is warm and dry. Respiratory: Airway is patent Respiratory effort is even, unlabored. GI: Bowel sounds present X 4 quads. Abd is soft X 4 quads Reports lower abdominal pain, nausea. Vital Signs: 12:37 BP 126 / 82; Pulse 85; Resp 16; Temp 98.4(O); Pulse Ox 100% ; Weight 64.86 kg; Height 5 nj1 ft. 3 in. ; Pain 9/10; 15:30 BP 108 / 80; Pulse 83; Resp 16; Pulse Ox 100% on R/A; me1 12:37 Body Mass Index 25.33 (64.86 kg, 160.02 cm) nj1 12:37 Pain Scale: Adult nj ED Course: 12:30 Patient has correct armband on for positive identification. Bed in low position. Call ms1 light in reach. Side rails up X 1. Provided Education on: POC. Verbalized understanding. . 12:31 Patient arrived in ED. im 12:36 Gustavo Connell DO is Attending Physician. ms3 12:39 Triage completed. nj1 12:39 Arm band placed on right wrist. nj1 13:48 Initial lab(s) drawn, by ms, sent to lab. Inserted saline lock: 22 gauge in right iw antecubital area, using aseptic technique. Blood collected. 14:36 CT Abd/Pelvis - IV Contrast Only In Process Unspecified. EDMS 15:12 Tez Caraballo DO is Referral Physician. ms3 15:16 Vanessa White, ZAK is Primary Nurse. me1 15:25 No provider procedures requiring assistance completed. me1 15:31 IV discontinued, intact, bleeding controlled, No redness/swelling at site. Pressure me1 dressing applied. Administered Medications: 13:59 Drug: Famotidine IVP 20 mg IVP once; dilute with 10 mL 0.9% NaCl; give over 2 minutes iw Route: IVP; Site: right antecubital; 15:17 Follow up: Response: No adverse reaction me1 13:59 Drug: Ondansetron IVP 4 mg IVP once; over 2 minutes Route: IVP; Site: right antecubital;iw 15:17 Follow up: Response: No adverse reaction; Marked relief of symptoms me1 Medication: 12:30 VIS not applicable for this client. me1 Outcome: 15:13 Discharge ordered by MD. ms3 15:30 Discharged to home ambulatory, me1 15:30 Condition: stable 15:30 Discharge instructions given to patient, Instructed on discharge instructions, follow up and referral plans. Demonstrated understanding of instructions, follow-up care, medications, Prescriptions given X 1, 15:31 Patient left the ED. me1 Signatures: Dispatcher [employer] EDMS Danitza Dukes RN RN iw Gustavo Connell DO DO ms3 Leticia Maurice RN RN nj1 Daniela Lucero Michelle RN RN me1 Corrections: (The following items were deleted from the chart) 12:40 12:37 BP 126 / 82; Pulse 85bpm; Resp 16bpm; Pulse Ox 100%; Temp 98.4F Oral; nj1 nj1 15:16 12:37 Chief complaint: Patient states: Low abdominal pain and nausea today. Denies me1 diarrhea/fever. nj1
[2023-10-23 15:37] VITALS: BP 108/80; TEMP 98.4; O2SAT 100
== END 2023-10-23 15:31 | disposition home or self-care (01) ==
LOC: ER 12:29
DX: R10.31 Right lower quadrant pain (principal); R11.2 Nausea with vomiting, unspecified; Z28.310 Unvaccinated for COVID-19
CPT/HCPCS: 85025; 36415; 81025; 81003; 83690; 80053; 74177; 96375; 96374; 99284; Q9967; J2405

== ENCOUNTER 2024-11-10 21:31 | Emergency (ER) | payer BC ==
--- OUTSIDE RECORDS SUMMARY | 2024-11-10 21:36 | XMS REPORT | Continuity of Care Document ---
Author Name Unknown Address [address] [facility] [address] [place] [address] [facility] thconnect Address [address] 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 Role Phone Unknown, Physician Primary Care Physician UnaJESSICA Burger Attending Clinician Unavailable JESSICA MOCTEZUMA Attending Clinician Unavailable Francy Lang DNP Attending Clinician [phone] Jessica Moctezuma MD Attending Clinician [phone] FRANCY LANG Attending Clinician Unavailable Doctor Unassigned, Snover Attending Clinician U navailable 2, [facility] Attending Clinician Unavailable SHENA ESTEBAN Attending Clinician Unavailable Shena Esteban PA-C Attending Clinician [phone] KATELYNN Attending Clinician Unavailable DARREN SANDS Attending Clinician Unavailable ILEANA DOW Attending Clinician Unavailable Brandon Perez MD Attending Clinicia n Checo Ward MD, Leonard Attending Clinician [phone] Only, Adc Test Attending Clinician Unavailable Zina Drew MD Attending Clinician [phone] ZINA DREW Attending Clinician Unavailabl e Ultrasound, Adc Mfm Attending Clinician UnavailEvans Lynch MD Attending Clinician [phone] EVANS PARK Attending Clinician Unavailable EVANS PARK Attending Clinician Unavailable Cm MAYERS, Ashley James Attending Clinician [phone] Case RN, Noni Doyle Attending Clinician Unavailable MARIE CORBETT Attending Clinician Carmen Corbett MD, Marie Donis Attending Clinician + DARREN SANDS M.D. Attending Clinician UnavailILEANA Pino NP Attending Clinician UnavailNYDIA Porter Attending Clinician Unavailable BHAVANI LANGFORD Attending Clinician Unavailable JESSICA MOCTEZUMA Admitting Clinician Unavailable SHENA ESTEBAN Admitting Clinician Unavailable KATELYNN Admitting Clinician Unavailable Rhianna BAEZ, Jessica Lopes Admitting Clinician [phone] Payers Payer Name Policy Type Policy Number Effective Date Expirati on Date Source [id number] PPO AND OUT OF STATE [id number] 2017 00:00:00 [facility] - OUT OF STATE [id number] 2017 00:00:00 [facility] [id number] 2021 00:00:00 [place] [id number] 2017 00:00:[place] [id number] 2017 00:00:00 Problems Condition Name Condition Details Condition Category Status Onset Date Resolution Date Last Treatment Date Treating Clinician Comments Source Allergic rhinitis Allergic rhinitis Disease Active 11-15 00:00: 00 [facility] Asthma Asthma Problem Active 2021-11 00:00: 00 Kathrine pond [facility] depression depression Disease Active 01-12 00:00: 00 [facility] History of asthma History of asthma Disease Active 2020-1116 00:00: 00 [facility] Obesity (BMI 30-39.9) Obesity (BMI 30-39.9) Disease Active 2020-11 00:00: 00 [facility] Injury of finger Injury of finger Disease Active 2018-11 00:00: 00 [facility] Abnormal vaginal bleeding Abnormal vaginal bleeding Disease Resolve d 2022-0 1-02 00:00: 00 2023-09-06 00:00:00 2023-09-06 13:48:05 [facility] Urinary tract infection Urinary tract infection Disease Resolve d 2021-0 4-18 00:00: 00 2023-09-06 00:00:00 2023-09-06 13:48:06 [facility] Initial encounter for management of contracept axel patch use Initial encounter for management of contracept axel patch use Disease Resolve d 2021-0 3-01 00:00: 00 2023-09-06 00:00:00 2023-09-06 13:48:09 [facility] Liveborn , of hendrix , born in hospital by vaginal delivery Liveborn infant, of hendrix , born in hospital by vaginal delivery Disease Resolve d 2021-0 1-27 00:00: 00 2022-01-12 00:00:00 2022-01-12 12:57:36 [facility] Vacuum-ass isted vaginal delivery Vacuum-ass isted vaginal delivery Disease Resolve d 2021-0 1-27 00:00: 00 2022-01-12 00:00:00 2022-01-12 12:57:36 [facility] Encounter for planned induction of labor Encounter for planned induction of labor Disease Resolve d 2021-0 1-24 00:00: 00 2022-01-12 00:00:00 2022-01-12 12:57:36 [facility] 39 weeks gestation of 39 weeks gestation of Disease Resolve d 2020-1 2-30 00:00: 00 2022-01-12 00:00:00 2022-01-12 12:57:36 [facility] Encounter for supervisio n of normal first in third trimester Encounter for supervisio n of normal first in third trimester Disease Resolve d 2020-1 1-16 00:00: 00 2022-01-12 00:00:00 2022-01-12 13:26:55 [facility] Uterine contractio ns during Uterine contractio ns during Disease Resolve d 2020-1 2-30 00:00: 00 2021-12-07 00:00:00 2021-12-07 19:05:43 [facility] Nausea and vomiting during Nausea and vomiting during Disease Resolve d 2020-11 2 00:00: 00 2021-12-07 00:00:00 2021-12-07 19:05:39 [facility] Nausea and vomiting during Nausea and vomiting during Disease Resolve d 2020-11 2 00:00: 00 2021-12-07 00:00:00 2021-12-07 19:05:39 [facility] Allergies, Adverse Reactions, Alerts Allergy Name Allergy Type Status Severity Reaction(s) Onset Date Inactive Date Treating Clinician Comments Source NO KNOWN ALLERGIE S Drug Class Active [facility] Social History Social Habit Start Date Stop Date Quantity Comments Source History of tobacco use Passive smoker [facility]coh[facility] beverage intake 2024-10-23 00:00:00 2024-10-23 00:00:00 Lifetime non-drinker (finding) [facility] History of Social function 2024-10-21 00:00:00 2024-10-21 00:00:00 [facility] Exposure to SARS-CoV-2 (event) 2022-11-05 00:00:00 2022-11-15 14:48:00 Not sure [facility] Tobacco use and exposure 2022-09-06 00:00:00 2022-09-06 00:00:00 Smokeless tobacco non-user [facility] Alcohol intake 2022-07-06 00:00:00 2022-07-06 00:00:00 Lifetime non-drinker (finding) [facility] Sex Assigned At 2000 00:00:00 2000 00:[facility]:00 [facility] Smoking Status Start Date Stop Date Source Never smoked tobacco [facility] Medications Ordered Medication Name Filled Medication Name Start Date Stop Date Current Medication? Ordering Clinician Indication Dosage Frequency Signature (SIG) Comments Components Source norethindro ne-e.estrad ioL-iron (LO LOESTRIN FE) 1 mg-10 mcg (24)/10 mcg (2) per tablet 01-11 00:00: 00 Yes [id number] 1{tbl} Take 1 tablet by mouth in the morning. [facility] norethindro ne-e.estrad ioL-iron (LOESTRIN FE /) 1 mg-20 mcg (21)/75 mg (7) tablet 2022-11 0-24 00:00: 00 01-11 00:00 :00 No [id number] 1{tbl} Take 1 tablet by mouth in the morning. [facility] norelgestro min-ethinyl estradiol 150-35 mcg/24 hr patch 2021-11 0-24 00:00: 00 09-06 00:00 :00 No [id number] 1{patch } Apply 1 Patch to skin weekly. [facility] Nitrofurant oin&Nit. Macrocryst (MACROBID) 100 mg capsule 5- 00:00: 00 03-21 04:59 :00 No [id number] 100mg Take 1 capsule by mouth 2 (two) times daily for 5 days. [facility] sulfamethox azole-trime thoprim 800-160 mg per tablet 4-18 00:00: 00 03-15 00:00 :00 No TAKE 1 TABLET BY MOUTH IN THE MORNING AND 1 TABLET IN THE EVENING. DO ALL THIS FOR 7 DAYS. [facility] norelgestro min-ethinyl estradiol 150-35 mcg/24 hr patch 3- 00:00: 00 09-06 00:00 :00 No [id number] 1{patch } Apply 1 Patch to skin weekly. [facility] vitamin w/FA tablet 1- 00:00: 00 03-15 00:00 :00 No [id number] 1{tbl} Take 1 tablet by mouth daily. [facility] docusate calcium 240 mg capsule 1-27 00:00: 00 03-15 00:00 :00 No [id number] 240mg Take 1 capsule by mouth once daily as needed for Constipati on. [facility] ferrous sulfate 325 mg (65 mg iron) tablet 12-10 00:00: 00 03-15 00:00 :00 No [id number] 325mg Take 1 tablet by mouth 2 (two) times daily. [facility] ibuprofen 600 mg tablet 12-10 00:00: 00 03-15 00:00 :00 No [id number] 600mg Take 1 tablet by mouth every 6 (six) hours as needed (Pain). Take with food or milk. [facility] albuterol sulfate HFA 90 mcg/actuati on aerosol [...] route as needed. for wheezing or SOB. [facility] Bromfed DM 2 mg-30 mg-10 [...] route as needed. for cough and congestion [facility] Tamiflu 75 mg capsule Take 1 capsule twice a day by oral route for 5 days. Tamiflu 75 mg capsule Take 1 capsule twice a day by oral route for 5 days. No 1capsul e(s) BID Tamiflu 75 mg capsule Take 1 capsule twice a day by oral route for 5 days. [facility] Xulane 150 mcg-35 mcg/24 hr transdermal patch APPLY 1 PATCH TO SKIN WEEKLY Xulane 150 mcg-35 mcg/24 hr transdermal patch APPLY 1 PATCH TO SKIN WEEKLY No Xulane 150 mcg-35 mcg/24 hr transderma l patch APPLY 1 PATCH TO SKIN WEEKLY [facility] Zithromax Z-Moshe 250 mg tablet TAKE [...] ORAL ROUTE ONCE DAILY FOR 4 DAYS [facility] [place] Fe 1/20 (28) 1 mg-20 mcg (21)/75 mg (7) tablet TAKE 1 TABLET BY MOUTH DAILY [place] Fe /20 (28) 1 mg-20 mcg (21)/75 mg (7) tablet TAKE 1 TABLET BY MOUTH DAILY No [place] Fe /20 (28) 1 mg-20 mcg (21)/75 mg (7) tablet TAKE 1 TABLET BY MOUTH DAILY [facility] fluconazole 150 mg tablet Take 1 tablet every day by oral route. fluconazole 150 mg tablet Take 1 tablet every day by oral route. No fluconazol e 150 mg tablet Take 1 tablet every day by oral route. [facility] Lo Loestrin Fe 1 mg-10 mcg (24)/10 mcg (2) tablet TAKE 1 TABLET BY MOUTH EVERY DAY Lo Loestrin Fe 1 mg-10 mcg (24)/10 mcg (2) tablet TAKE 1 TABLET BY MOUTH EVERY DAY No Lo Loestrin Fe 1 mg-10 mcg (24)/10 mcg (2) tablet TAKE 1 TABLET BY MOUTH EVERY DAY [facility] metronidazo le 500 mg tablet Take 1 tablet twice a day by oral route for 7 days. metronidazo le 500 mg tablet Take 1 tablet twice a day by oral route for 7 days. No metronidaz ole 500 mg tablet Take 1 tablet twice a day by oral route for 7 days. [facility] Immunizations Ordered Immunization Name Filled Immunization Name Date Status Comments Source Influenza Virus Vaccine Quad IM, Preserv and ABX Free 6 MO-64 YRS (FLUCELVAX) 2022-09-06 00:00:00 Completed [facility] Influenza Virus Vaccine Quad IM, Preserv and ABX Free 6 MO-64 YRS 2022-09-06 00:00:00 Completed [facility] Influenza Virus Vaccine Quad IM, Preserv and ABX Free 6 MO-64 YRS 2022-09-06 00:00:00 Completed [facility] Influenza Virus Vaccine Quad IM, Preserv and ABX Free 6 MO-64 YRS 2022-09-06 00:00:00 Completed [facility] Influenza Virus Vaccine Quad IM, Preserv and ABX Free 6 MO-64 YRS 2022-09-06 00:00:00 Completed [facility] Influenza Virus Vaccine Quad IM, Preserv and ABX Free 6 MO-64 YRS 2022-09-06 00:00:00 Completed [facility] Influenza Virus Vaccine Quad IM, Preserv and ABX Free 6 MO-64 YRS 2022-09-06 00:00:00 Completed [facility] Influenza Virus Vaccine Quad IM, Preserv and ABX Free 6 MO-64 YRS 2022-09-06 00:00:00 Completed [facility] Influenza Virus Vaccine Quad IM, Preserv and ABX Free 6 MO-64 YRS 2022-09-06 00:00:00 Completed [facility] TDAP 2021-09-28 00:00:00 Completed Rho (d) Immune Globulin 2021-09-28 00:00:00 Completed [facility] TDAP 2021-09-28 00:00:00 Completed [facility] Rho (d) Immune Globulin 2021-09-28 00:00:00 Completed [facility] TDAP 2021-09-28 00:00:00 Completed [facility] Rho (d) Immune Globulin 2021-09-28 00:00:00 Completed [facility] TDAP 2021-09-28 00:00:00 Completed [facility] Rho (d) Immune Globulin 2021-09-28 00:00:00 Completed [facility] TDAP 2021-09-28 00:00:00 Completed [facility] Rho (d) Immune Globulin 2021-09-28 00:00:00 Completed [facility] TDAP 2021-09-28 00:00:00 Completed [facility] Rho (d) Immune Globulin 2021-09-28 00:00:00 Completed [facility] TDAP 2021-09-28 00:00:00 Completed [facility] Rho (d) Immune Globulin 2021-09-28 00:00:00 Completed [facility] TDAP 2021-09-28 00:00:00 Completed [facility] Rho (d) Immune Globulin 2021-09-28 00:00:00 Completed [facility] TDAP 2021-09-28 00:00:00 Completed [facility] Rho (d) Immune Globulin 2021-09-28 00:00:00 Completed [facility] TDAP 2021-09-28 00:00:00 Completed [facility] Rho (d) Immune Globulin 2021-09-28 00:00:00 Completed [facility] Influenza Virus Vaccine 2021-09-11 00:00:00 Completed Influenza Virus Vaccine 2021-09-11 00:00:00 Completed [facility] Influenza Virus Vaccine 2021-09-11 00:00:00 Completed [facility] Influenza Virus Vaccine 2021-09-11 00:00:00 Completed [facility] Influenza Virus Vaccine 2021-09-11 00:00:00 Completed [facility] Influenza Virus Vaccine 2021-09-11 00:00:00 Completed [facility] Influenza Virus Vaccine 2021-09-11 00:00:00 Completed [facility] Influenza Virus Vaccine 2021-09-11 00:00:00 Completed [facility] Influenza Virus Vaccine 2021-09-11 00:00:00 Completed [facility] Influenza Virus Vaccine 2021-09-11 00:00:00 Completed [facility] TDAP Unknown Completed [facility] Influenza Virus Vaccine Unknown Completed [facility] Rho (d) Immune Globulin Unknown Completed [facility] Influenza Virus Vaccine Quad IM, Preserv and ABX Free 6 MO-64 YRS (FLUCELVAX) Unknown Completed [facility] TDAP Unknown Completed [facility] Influenza Virus Vaccine Unknown Completed [facility] Rho (d) Immune Globulin Unknown Completed [facility] Influenza Virus Vaccine Quad IM, Preserv and ABX Free 6 MO-64 YRS (FLUCELVAX) Unknown Completed [facility] TDAP Unknown Completed [facility] Influenza Virus Vaccine Unknown Completed [facility] Rho (d) Immune Globulin Unknown Completed [facility] Influenza Virus Vaccine Quad IM, Preserv and ABX Free 6 MO-64 YRS (FLUCELVAX) Unknown Completed [facility] TDAP Unknown Completed [facility] Influenza Virus Vaccine Unknown Completed [facility] Rho (d) Immune Globulin Unknown Completed [facility] Influenza Virus Vaccine Quad IM, Preserv and ABX Free 6 MO-64 YRS (FLUCELVAX) Unknown Completed [facility] TDAP Unknown Completed [facility] Influenza Virus Vaccine Unknown Completed [facility] Rho (d) Immune Globulin Unknown Completed [facility] Influenza Virus Vaccine Quad IM, Preserv and ABX Free 6 MO-64 YRS (FLUCELVAX) Unknown Completed [facility] TDAP Unknown Completed [facility] Influenza Virus Vaccine Unknown Completed [facility] Rho (d) Immune Globulin Unknown Completed [facility] Influenza Virus Vaccine Quad IM, Preserv and ABX Free 6 MO-64 YRS (FLUCELVAX) Unknown Completed [facility] TDAP Unknown Completed [facility] Influenza Virus Vaccine Unknown Completed [facility] Rho (d) Immune Globulin Unknown Completed [facility] Influenza Virus Vaccine Quad IM, Preserv and ABX Free 6 MO-64 YRS (FLUCELVAX) Unknown Completed [facility] TDAP Unknown Completed [facility] Influenza Virus Vaccine Unknown Completed [facility] Rho (d) Immune Globulin Unknown Completed [facility] Influenza Virus Vaccine Quad IM, Preserv and ABX Free 6 MO-64 YRS (FLUCELVAX) Unknown Completed [facility] Vital Signs Vital Name Observation Time Observation Value Comments S nighat Systolic blood pressure 2024-10-23 21:36:00 133 mm[Hg] [facility] Diastolic blood pressure 2024-10-23 21:36:00 70 mm[Hg] [facility] Heart rate 2024-10-23 21:36:00 79 /min [facility] Body temperature 2024-10-23 21:36:00 36.78 Raven [facility] Respiratory rate 2024-10-23 21:36:00 18 /min [facility] Body height 2024-10-23 21:36:00 160 cm [facility] Body weight 2024-10-23 21:36:00 70.67 kg [facility] BMI 2024-10-23 21:36:00 27.60 kg/m2 [facility] Systolic blood pressure 2024-01-11 19:46:00 116 mm[Hg] [facility] Diastolic blood pressure 2024-01-11 19:46:00 73 mm[Hg] [facility] Heart rate 2024-01-11 19:46:00 77 /min [facility] Body temperature 2024-01-11 19:46:00 36.72 Raven [facility] Respiratory rate 2024-01-11 19:46:00 18 /min [facility] Body height 2024-01-11 19:46:[address] [facility] Body weight 2024-01-11 19:46:[address] [facility] BMI 2024-01-11 19:46:00 25.86 kg/m2 [facility] Systolic blood pressure 2023-09-06 18:34:00 118 mm[Hg] [facility] Diastolic blood pressure 2023-09-06 18:34:00 75 mm[Hg] [facility] Heart rate 2023-09-06 18:34:00 89 /min [facility] Body temperature 2023-09-06 18:34:00 36.72 Raven [facility] Body height 2023-09-06 18:34:00 160 cm [facility] Body weight 2023-09-06 18:34:[address] [facility] BMI 2023-09-06 18:34:00 25.54 kg/m2 [facility] Systolic blood pressure 2022-11-15 21:08:00 100 mm[Hg] [facility] Diastolic blood pressure 2022-11-15 21:08:00 67 mm[Hg] [facility] Heart rate 2022-11-15 21:08:00 76 /min [facility] Body temperature 2022-11-15 21:08:00 36.56 Raven [facility] Body height 2022-11-15 21:08:[address] [facility] Body weight 2022-11-15 21:08:[address] [facility] BMI 2022-11-15 21:08:00 23.21 kg/m2 [facility] Systolic blood pressure 2022-09-06 18:21:00 111 mm[Hg] [facility] Diastolic blood pressure 2022-09-06 18:21:00 73 mm[Hg] [facility] Heart rate 2022-09-06 18:21:00 73 /min [facility] Body temperature 2022-09-06 18:21:00 36.67 Raven [facility] Body height 2022-09-06 18:21:[address] [facility] Body weight 2022-09-06 18:21:[address] [facility] BMI 2022-09-06 18:21:00 23.63 kg/m2 [facility] BP Diastolic 2022-08-25 00:00:00 80 mm[Hg] [facility] Height 2022-08-25 00:00:00 63 [in_i] [facility] BMI (Body Mass Index) 2022-08-25 00:00:00 24.3 kg/m2 [facility] BP Systolic 2022-08-25 00:00:00 114 mm[Hg] [facility] Body Weight 2022-08-25 00:00:00 2194 [oz_av] [facility] Body height 2022-07-06 15:49:00 [facility] Body weight 2022-07-06 15:49:00 [facility]68 [facility] BMI 2022-07-06 15:49:00 23.03 kg/m2 [facility] ealt Systolic blood pressure 2022-03-15 19:09:00 108 mm[Hg] [place] [facility] Diastolic blood pressure 2022-03-15 19:09:00 66 mm[Hg] [facility] Heart rate 2022-03-15 19:09:00 72 /min [facility] Body temperature 2022-03-15 19:09:00 37 Raven [facility] Respiratory rate 2022-03-15 19:09:00 16 /min [facility] Body height 2022-03-15 19:09:[address] [facility] Body weight 2022-03-15 19:09:[address] [facility] BMI 2022-03-15 19:09:00 24.33 kg/m2 [facility] Procedures Procedure Date / Time Performed Performing Clinician Source [facility] PATIENT FINANCIAL POLICY 2023-09-06 18:21:27 Doctor Unassigned, Snover [facility] POCT TEST 2023-09-06 00:00:00 Jessica Moctezuma [facility] US PELVIS COMPLETE WITH TRANSVAGINAL 2022-11-19 21:46:55 Shena Esteban [facility] ASSIGNMENT OF BENEFITS 2022-11-15 20:47:18 Docto r Unassigned, [place]over [facility] POCT TEST 2022-11-15 00:00:00 Anselmo Esteban [facility] FLU VACC ([id number]), 6 MO-64 YRS, .5ML, IM, QUAD (FLUCELVAX) 2022-09-06 18:33:10 Jessica Moctezuma [facility] CONSENT FOR CONTRACEPTION 2022-09-06 05:01:00 Doctor Unassigned, Snover [facility] POCT TEST 2022-09-06 00:00:00 Jessica Moctezuma [facility] POCT URINALYSIS W/O SPECIFIC GRAVITY 2022-03-15 00:00:00 Jessica Moctezuma [facility] Plan of Care Planned Activity Planned Date Details Comments Source Diagnostic Test Pending 2022-08-25 00:00:00 influenza virus A + B and SARS CoV 2 (COVID-19) and RSV RNA panel, DAVE+probe, respiratory specimen [code = influenza virus A + B and SARS CoV 2 (COVID-19) and RSV RNA panel, DAVE+probe, respiratory specimen] [facility] Diagnostic Test Pending 2022-08-25 00:00:00 rapid strep group A, throat [code = rapid strep group A, throat] [facility] Encounters Start Date/Time End Date/Time Encounter Type Admission Type Attending [facility] Facility Care Department Encounter ID Source 2022-08-23 06:51:12 Outpatient [facility] [id number] [facility] 2022-07-22 12:04:36 Outpatient [facility] [id number] [facility] 2022-07-09 11:17:07 Outpatient [facility] [id number] [facility] 2022-07-06 09:49:13 Outpatient [facility] [id number] [facility] 2022-07-01 17:39:17 Outpatient [facility] [id number] [facility] 2022-06-28 11:10:49 Outpatient [facility] [id number] [facility] 2021-11-25 16:52:12 Outpatient P [facility] KACEY [id number] [facility] 2021-10-08 19:10:54 Outpatient P [facility] [id number] [facility] 2025-10-23 15:15:00 2025-10-23 15:15:00 Outpatient JESSICA MOHAMUD VI[facility] [id number] [facility] 2024-10-23 15:15:00 2024-10-23 15:55:35 Outpatient JESSICA MOHAMUD [facility] [id number] [facility] 2024-10-23 15:15:00 2024-10-23 15:55:35 Office Visit Francy Lang Vien [facility] 1.2.840.114 350.1.13.10 4.2.7.2.686 [id number] 134 [id number] [facility] 2024-04-13 00:00:00 2024-05-19 18:25:58 Patient Secure Msg Doctor Unassigned, Snover [facility] 1.2.840.114 350.1.13.10 4.2.7.2.686 [id number] 134 [id number] [facility] 2024-04-13 00:00:00 2024-04-13 11:59:39 Refill Jessica Moctezuma [facility] 1.2.840.114 350.1.13.10 4.2.7.2.686 [id number] 134 [id number] [facility] 2024-04-11 14:30:00 2024-04-11 14:30:00 Outpatient R JESSICA MOCTEZUMA [facility] [id number] [facility] 2024-01-27 00:00:00 2024-01-27 00:00:00 Telephone Jessica Moctezuma [facility] 1.2.840.114 350.1.13.10 4.2.7.2.686 [id number] 134 [id number] [facility] 2024-01-11 14:00:00 2024-01-11 14:00:00 Office Visit Jessica Moctezuma [facility] 1.2.840.114 350.1.13.10 4.2.7.2.686 [id number] 134 [id number] [facility] 2024-01-11 14:00:00 2024-01-11 13:57:01 Outpatient R JESSICA MOCTEZUMA [facility] [id number] [facility] 2023-09-07 00:00:00 2023-09-07 00:00:00 Patient Secure Msg Doctor Unassigned, Snover [facility] 1.2.840.114 350.1.13.10 4.2.7.2.686 [id number] 134 [id number] [facility] 2023-09-06 14:15:00 2023-09-06 14:30:00 Decision Unit Rn Visit 2, Adc Lab Jessica Moctezuma [facility] 1.2.840.114 350.1.13.10 4.2.7.2.686 [id number] [facility] 2023-09-06 13:30:00 2023-09-06 13:48:51 Outpatient R RHIANNA JESSICA [facility] [id number] [facility] 2023-09-06 13:30:00 2023-09-06 13:48:51 Office Visit Jessica Moctezuma [facility] 1.2.840.114 350.1.13.10 4.2.7.2.686 [id number] 134 [id number] [facility] 2023-09-06 00:00:00 2023-09-06 00:00:00 Orders Only Doctor Unassigned, Snover [facility] 1.2.840.114 350.1.13.10 4.2.7.2.686 [id number] [id number] [facility] 2022-11-22 00:00:00 2022-11-22 00:00:00 Telephone Jessica Moctezuma [facility] 1.2.840.114 350.1.13.10 4.2.7.2.686 [id number] 134 [id number] [facility] 2022-11-19 14:53:19 2022-11-19 23:59:00 Outpatient R EULALIA SHENA [facility] [id number] [facility] 2022-11-19 14:53:19 2022-11-19 23:59:00 Hospital Encounter Vanaphan, [facility] 1.2.840.114 350.1.13.10 4.2.7.2.686 [id number] [facility] 2022-11-15 15:00:00 2022-11-15 15:25:06 [id number] 2022-11-15 15:00:00 2022-11-15 15:25:06 Office Visit Shena Esteban [facility] 1.2.840.114 350.1.13.10 4.2.7.2.686 [id number] 134 [id number] [facility] 2022-11-15 00:00:00 2022-11-15 00:00:00 Orders Only Doctor Unassigned, Snover [facility] 1.2.840.114 350.1.13.10 4.2.7.2.686 [id number] [id number] [facility] 2022-11-15 00:00:00 2022-11-15 00:00:00 Telephone Shena Esteban [facility] 1.2.840.114 350.1.13.10 4.2.7.2.686 [id number] 134 [id number] [facility] 2022-09-06 14:30:00 2022-09-06 14:45:00 Decision Unit Rn Visit 2, Adc Lab Jessica Moctezuma [facility] 1.2.840.114 350.1.13.10 4.2.7.2.686 [id number] [facility] 2022-09-06 13:30:00 2022-09-06 14:13:20 Outpatient R JESSICA [facility]CTEZUMA [facility] [id number] [facility] 2022-09-06 13:30:00 2022-09-06 14:13:20 Office Visit Jessica Moctezuma [facility] 1..840.114 350.1.13.10 4.2.7.2.686 [id number] 134 [id number] [facility] 2022-09-06 00:00:00 2022-09-06 00:00:00 Orders Only Doctor Unassigned, Snover [facility] 1..840.114 350.1.13.10 4.2.7.2.686 [id number] [id number] [facility] 2022-08-28 00:00:00 2022-08-28 00:00:00 Outpatient LISTER_MELI [facility] [id number] [facility] 2022-08-25 00:00:00 2022-08-25 00:00:00 Outpatient LISTER_MELI [facility] [id number] [facility] 2022-08-25 00:00:00 2022-08-25 00:00:00 Osmani Meija: [address] [place] [address] , Ph. [facility] Religion [facility] [id number] [facility] 2022-07-26 15:00:00 2022-07-26 15:00:00 Outpatient DARREN SANDS [facility] [id number] [facility] 2022-07-06 00:00:00 2022-07-06 11:40:12 Outpatient [facility] [id number] [facility] 2022-07-06 10:30:00 2022-07-06 11:38:32 Office Visit Darren Sands [facility] [place] 1..840.114 350.1.13.58 9.2.7.2.686 [id number] [facility] 2022-06-29 11:00:00 2022-06-29 11:00:00 Outpatient ILEANA DOW [facility] [id number] [facility] 2022-03-15 13:45:00 2022-03-15 14:40:48 Outpatient R JESSICA [facility]EZUMA [facility] [id number] [facility] 2022-03-15 13:45:00 2022-03-15 14:40:48 Office [facility] 1.2.840.114 350.1.13.10 4.2.7.2.686 [id number] 134 [id number] [facility] 2022-03-15 13:45:00 2022-03-15 14:40:48 Outpatient R JESSICA MOCTEZUMA [facility] [id number] [facility] 2022-03-15 00:00:00 2022-03-15 00:00:00 [facility] 1.2.840.114 350.1.13.10 4.2.7.2.686 [id number] 134 [id number] [facility] 2022-03-11 00:00:00 2022-03-11 00:00:00 Refill Jessica Moctezuma [facility] 1.2.840.114 350.1.13.10 4.2.7.2.686 [id number] 134 [id number] [facility] 2022-03-08 02:38:00 2022-03-08 02:38:00 Outpatient LISTER_MELI [facility] [id number] [facility] 2022-02-16 13:45:00 2022-02-16 14:01:10 Office Visit Jessica Moctezuma [facility] 1.2.840.114 350.1.13.10 4.2.7.2.686 [id number] 134 [id number] [facility] 2022-02-16 13:45:00 2022-02-16 14:01:10 Outpatient N JESSICA [facility]CTEZUMA [facility] [id number] [facility] 2022-02-16 13:45:00 2022-02-16 13:45:00 Outpatient N JESSICA [facility]CTEZUMA [facility] [id number] [facility] 2022-01-12 13:00:00 2022-01-12 13:16:10 Outpatient R JESSICA [facility]CTEZUMA [facility] [id number] [facility] 2022-01-12 13:00:00 2022-01-12 13:16:10 Routine Visit Jessica Moctezuma [facility] 1.0.114 350.1.13.10 4.2.7.2.686 [id number] 134 [id number] [facility] 2022-01-12 00:00:00 2022-01-12 00:00:00 Orders Only Doctor Unassigned, Snover [facility] 1.0.114 350.1.13.10 4.2.7.2.686 [id number] [id number] [facility] 2021-12-08 11:50:00 2021-12-10 17:30:00 Inpatient P JESSICA MOCTEZUMA [facility] [id number] [facility] 2021-12-08 11:50:00 2021-12-10 17:30:00 Hospital Encounter Jessica Moctezuma [facility] 1.0.114 350.1.13.10 4.2.7.2.686 [id number] [id number] [facility] 2021-12-08 11:50:00 2021-12-10 17:30:00 Inpatient P JESSICA MOCTEZUMA [facility] [id number] [facility] 2021-12-09 05:52:00 2021-12-09 17:02:00 Anesthesia Event Brandon Britt Leonard [facility] 1.2.114 350.1.13.10 4.2.7.2.686 [id number] [facility] 2021-12-07 10:30:00 2021-12-07 10:45:00 Laboratory Only Only, Adc Test Zina Drew [facility] 1.2.840.114 350.1.13.10 4.2.7.2.686 [id number] [facility] 2021-12-07 10:30:00 2021-12-07 10:30:00 Outpatient R ZINA DREW [facility] [id number] [facility] 2021-12-07 10:30:00 2021-12-07 10:30:00 Outpatient R ZINA DREW [facility] [id number] [facility] 2021-12-03 12:07:00 2021-12-03 17:00:00 Outpatient P JESSICA MOCTEZUMA [facility] [id number] [facility] 2021-12-03 12:07:00 2021-12-03 17:00:00 Hospital Encounter Jessica Moctezuma [facility] 1.2840.114 350.1.13.10 4.2.7.2.686 [id number] [facility] 2021-12-03 00:00:00 2021-12-03 00:00:00 Telephone Jessica Moctezuma [facility] 1.2.840.114 350.1.13.10 4.2.7.2.686 [id number] 134 [id number] [facility] 2021-12-02 11:00:00 2021-12-02 11:23:28 Outpatient R JESSICA MOCTEZUMA [facility] [id number] [facility] 2021-12-02 11:00:00 2021-12-02 11:23:28 Routine Visit Jessica Moctezuma [facility] 1.2.840.114 350.1.13.10 4.2.7.2.686 [id number] 134 [id number] [facility] 2021-12-01 10:15:00 2021-12-01 11:00:00 Decision Unit Rn Visit Ultrasound, [facility] 1.2.840.114 350.1.13.10 4.2.7.2.686 [id number] 134 [id number] [facility] 2021-12-01 10:15:00 2021-12-01 10:54:25 Decision Unit Rn Visit Ultrasound, Kellen Evans Al Emi [facility] 1.2.840.114 350.1.13.10 4.2.7.2.686 [id number] 134 [id number] [facility] 2021-12-01 10:15:00 2021-12-01 10:15:00 Outpatient P EVANS PARK SHANNON [facility] [id number] [facility] 2021-11-26 13:45:00 2021-11-26 14:16:01 Outpatient R JESSICA MOCTEZUMA [facility] [id number] [facility] 2021-11-26 13:45:00 2021-11-26 14:16:01 Routine Visit Jessica Moctezuma [facility] 1.2.840.114 350.1.13.10 4.2.7.2.686 [id number] 134 [id number] [facility] 2021-11-22 00:32:00 2021-11-22 07:05:00 Outpatient X JESSICA MOCTEZUMA [facility] [id number] [facility] 2021-11-22 00:32:00 2021-11-22 07:05:00 Emergency Drever, Jessica Moeller [facility] 1.2.840.114 350.1.13.10 4.2.7.2.686 [id number] [facility] 2021-11-19 14:00:00 2021-11-19 14:00:00 Decision Unit Rn Visit 2, Adc Lab Moctezuma, Jessica Cam [facility] 1.84.114 350.1.13.10 4.2.7.2.686 [id number] [facility] 2021-11-19 13:00:00 2021-11-19 13:49:11 Outpatient R JESSICA [facility]CTEZUMA [facility] [id number] [facility] 2021-11-19 13:00:00 2021-11-19 13:49:11 Routine Visit Jessica Moctezuma [facility] 1..114 350.1.13.10 4.2.7.2.686 [id number] 134 [id number] [facility] 2021-11-19 00:00:00 2021-11-19 00:00:00 Orders Only Doctor Unassigned, Snover [facility] 1..114 350.1.13.10 4.2.7.2.686 [id number] [facility] 2021-11-11 14:50:00 2021-11-11 19:52:00 Outpatient P JESSICA MOCTEZUMA [facility] [id number] [facility] 2021-11-11 14:50:00 2021-11-11 19:52:00 Hospital Encounter Jessica Moctezuma [facility] 1..114 350.1.13.10 4.2.7.2.686 [id number] [facility] 2021-11-11 00:00:00 2021-11-11 00:00:00 Patient Secure Msg Noni Gray [facility] 1..114 350.1.13.10 4.2.7.2.686 [id number] 134 [id number] [facility] 2021-11-11 00:00:00 2021-11-11 00:00:00 Telephone Jessica Moctezuma [facility] 1.840.114 350.1.13.10 4.2.7.2.686 [id number] 134 [id number] [facility] 2021-11-09 11:49:00 2021-11-09 16:12:00 Outpatient X JESSICA MOCTEZUMA [facility] [id number] [facility] 2021-11-09 11:49:00 2021-11-09 16:12:00 Emergency Jessica Moctezuma [facility] 1..840.114 350.1.13.10 4.2.7.2.686 [id number] [facility] 2021-11-05 13:15:00 2021-11-05 14:03:39 Outpatient R JESSICA MOCTEZUMA [facility] [id number] [facility] 2021-11-05 13:15:00 2021-11-05 14:03:39 Routine Visit Jessica Moctezuma [facility] 1..840.114 350.1.13.10 4.2.7.2.686 [id number] 134 [id number] [facility] 2021-11-03 10:00:00 2021-11-03 10:33:52 Outpatient P MARIE CORBETT [facility] [id number] [facility] 2021-11-03 10:00:00 2021-11-03 10:33:52 Decision Unit Rn Visit Ultrasound, Adc Mfm Marie Corbett Ikuvbogie [facility] 1..840.114 350.1.13.10 4.2.7.2.686 [id number] 134 [id number] [facility] 2021-10-22 10:45:00 2021-10-22 11:10:37 Outpatient R JESSICA MOCTEZUMA [facility] [id number] [facility] 2021-10-22 10:15:54 2021-10-22 11:10:37 [facility] 1..840.114 350.1.13.10 4.2.7.2.686 [id number] 134 [id number] [facility] 2021-10-20 00:00:00 2021-10-20 00:00:00 Orders Only Doctor Unassigned, Snover [facility] 1.840.114 350.1.13.10 4.2.7.2.686 [id number] [facility] 2021-10-12 15:45:00 2021-10-12 15:08:48 [facility] [id number] [facility] 2021-10-12 15:45:00 2021-10-12 15:08:48 Outpatient R RHIANNA [facility] [id number] [facility] 2021-10-12 14:48:06 2021-10-12 15:08:48 Routine Visit Jessica Moctezuma [facility] 1..840.114 350.1.13.10 4.2.7.2.686 [id number] 134 [id number] [facility] 2021-10-08 14:38:00 2021-10-08 19:07:00 [facility] [id number] [facility] 2021-10-08 14:38:00 2021-10-08 19:07:00 Outpatient P JESSICA MOCTEZUMA [facility] [id number] [facility] 2021-10-08 14:38:00 2021-10-08 19:07:00 Hospital Encounter Jessica Moctezuma [facility] 1.840.114 350.1.13.10 4.2.7.2.686 [id number] [facility] 2021-10-08 00:00:00 2021-10-08 00:00:00 Orders Only Doctor Unassigned, Snover [facility] 1.20.114 350.1.13.10 4.2.7.2.686 [id number] [facility] 2021-09-30 00:00:00 2021-09-30 00:00:00 Telephone Jessica Moctezuma [facility] 1.2.840.114 350.1.13.10 4.2.7.2.686 [id number] 134 [id number] [facility] 2021-09-28 14:00:00 2021-09-28 15:08:28 Outpatient R JESSICA MOCTEZUMA [facility] [id number] [facility] 2021-09-28 13:06:12 2021-09-28 15:08:28 Initial Visit Jessica Moctezuma [facility] 1.2.840.114 350.1.13.10 4.2.7.2.686 [id number] 134 [id number] [facility] 2021-09-28 00:00:00 2021-09-28 00:00:00 Orders Only Doctor Unassigned, Snover [facility] 1.2840.114 350.1.13.10 4.2.7.2.686 [id number] [facility] 2021-09-22 00:00:00 2021-09-22 00:00:00 Telephone Jessica Moctezuma [facility] 1.2.840.114 350.1.13.10 4.2.7.2.686 [id number] 134 [id number] [facility] 2021-09-14 00:00:00 2021-09-14 00:00:00 Orders Only Doctor Unassigned, Snover [facility] 1.2840.114 350.1.13.10 4.2.7.2.686 [id number] [facility] 2021-08-25 00:00:00 2021-08-25 00:00:00 Orders Only Doctor Unassigned, Snover [facility] 1.2.840.114 350.1.13.10 4.2.7.2.686 [id number] [facility] 2021-02-08 11:52:00 2021-02-08 11:52:00 Outpatient LISTER_MELI [facility] [id number] [facility] 2021-02-06 02:51:00 2021-02-06 02:51:00 Outpatient LISTER_MELI [facility] [id number] [facility] 2021-02-06 00:00:00 2021-02-06 00:00:00 Sherrill Perez NP: [address], [place] [address] , Ph. 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 SHAH, VISHAL, M.D. [facility] [id number] [place] [facility] [facility] 2018-06-20 08:15:00 2018-06-20 08:15:00 Appointmen t; DARREN SANDS M.D. SHAH, VISHAL, M.D. [facility] [id number] [place] [facility] 2018-04-18 08:15:00 2018-04-18 08:15:00 Appointmen t; ILEANA DOW NP MCDOUGALL, SEAN, NP [facility] [id number] [place] [facility] 2018-03-07 08:15:00 2018-03-07 08:15:00 Appointmen t; ILEANA DOW NP MCDOUGALL, SEAN, NP [facility] [id number] [place] [facility] 2018-02-06 08:15:00 2018-02-06 08:15:00 Appointmen t; DARREN SANDS M.D. SHAH, VISHAL, M.D. [facility] [id number] [place] [facility] 2018-01-20 09:15:00 2018-01-20 09:15:00 Appointmen t; DARREN SANDS M.D. SHAH, VISHAL, M.D. [facility] [id number] [place] [facility] 2017-12-28 15:15:00 2017-12-28 15:15:00 Appointmen t; DARREN SANDS M.D. SHAH, VISHAL, M.D. [facility] [id number] [place] 2017-08-23 13:45:00 2017-08-23 13:45:00 Appointmen t; NYDIA LINK NELSON [facility] [id number] [place] 2017-07-12 10:30:00 2017-07-12 10:30:00 Appointmen t; DARREN SANDS M.D. SHAH, VISHAL, M.D. [facility] [id number] [place] 2017-05-19 13:30:00 2017-05-19 13:30:00 Appointmen t; DARREN SANDS M.D. SHAH, VISHAL, M.D. [facility] [id number] [place] 2017-05-06 11:00:00 2017-05-06 11:00:00 Appointmen t; BHAVANI LANGFORD JEFFREY [facility] [id number] [place] Results Test Description Test Time Test Comments Results Result Co mments Source [facility] [id number] 18:35:00* Test Item Value Reference Range Interpretation Comme nts POCT PREG (test code = 1605) Negative On board controls acceptable with C Line (test code = 3574) Yes POCT PREG LOT # (test code = 3575) POCT PREG TEST DATE ( test code = 3576) [facility] [id number] 21:27:00* Test Item Value Reference Range Interpretation Comme nts POCT PREG (test code = 1605) Negative On board controls acceptable with C Line (test code = 3574) Yes POCT PREG LOT # (test code = 3575) POCT PREG TEST DATE ( test code = 3576[id number] 21:27:00* Test Item Value Reference Range Interpretation Comme nts POCT PREG (test code = 1605) Negative On board controls acceptable with C Line (test code = 3574) Yes POCT PREG LOT # (test code = 3575) POCT PREG TEST DATE ( test code = 3576) [facility] [id number] 19:11:00* Test Item Value Reference Range Interpretation Comme nts POCT PREG (test code = 1605) Negative On board controls acceptable with C Line (test code = 3574) Yes POCT PREG LOT # (test code = 3575) POCT PREG TEST DATE ( test code = 3576) [facility] [id number] 19:11:00* Test Item Value Reference Range Interpretation Comme nts POCT PREG (test code = 1605) Negative On board controls acceptable with C Line (test code = 3574) Yes POCT PREG LOT # (test code = 3575) POCT PREG TEST DATE ( test code = 3576) [facility] W/O SPECIFIC [id number] 19:13:00* Test Item Value Reference Range Interpretation [...] = 3257) negative Negative - Negati ve [facility]
[2024-11-10] MEDS ORDERED: ONDANSETRON 4 MG/2 ML VIAL ONE (22:33)
[2024-11-10] MEDS ORDERED: DICYCLOMINE HCL 20 MG/2 ML AMP IM ONE (22:33)
[2024-11-10] MEDS ORDERED: FAMOTIDINE 20 MG/2 ML VIAL IV ONE (22:33)
[2024-11-10] MEDS ORDERED: NA CHLORIDE 0.9% 1,000 ML ONE (22:34)
[2024-11-10 23:07] LABS: Absolute Basophils 0.1 K/uL (0-0.5); Absolute Eosinophils 0.5 K/uL (0-0.5); Absolute Lymphocytes (CBC) 4.1 K/uL (0.7-4.9); Absolute Monocytes 0.8 K/uL (0.1-1.3); Absolute Neutrophil 9.2 K/uL (1.8-8.0); Basophils % 0.6 % (0-1.3); Eosinophils % 3.2 % (0-4.4); Hemoglobin 13.5 g/dL (12.0-15.0); Lymphocytes % 27.8 % (15.3-44.8); MCH 29.5 pg (27.0-35.0); MCHC 33.9 g/dL (32.0-36.0); MCV 87.1 fL (80-100); MPV 8.7 fL (7.6-11.3); Monocytes % 5.5 % (3.3-12.3); Neutrophils % 62.9 % (41.7-73.7); Nucleated Red Blood Cells % 0.1 % (0-0); Platelets 252 thou/uL (152-406); RBC Red Blood Cell Count 4.59 M/uL (3.86-4.86); Red Cell Distribution Width 12.6 % (12.1-15.2)
[2024-11-10 23:23] LABS: Albumin 3.9 g/dL (3.4-5.0); Albumin/Globulin Ratio 1.1 (1.1-1.8); Anion Gap 9.1 mEq/L (5.0-15.0); Bilirubin Total 0.2 mg/dL (0.2-1.0); Globulin 3.7 g/dL (2.3-3.5); Potassium 3.1 mEq/L (3.5-5.1); Protein, Total 7.6 g/dL (6.4-8.2)
[2024-11-10 23:31] LABS: Specific Gravity < 1.005 (1.005-1.030); Sqamous Epithelial None Seen /HPF (None Seen); Urine Bacteria None Seen /HPF (<20); Urine Bilirubin NEGATIVE (Negative); Urine Blood Negative (Negative); Urine Clarity Turbid (Clear); Urine Color Colorless (Yellow); Urine Crystals Unidentified Few /HPF (None Seen); Urine Culture Reflex Order NOT NEEDED; Urine Glucose NEGATIVE (Negative); Urine Ketones NEGATIVE (Negative); Urine Microscopic Reflex YN ORDER UMIC; Urine Nitrite NEGATIVE (Negative); Urine Protein NEGATIVE (Negative); Urine RBC <5 /HPF (None Seen); Urine Urobilinogen Normal (Normal); Urine WBC None Seen /HPF (<5); Urine pH 6.5 (5.0-7.0)
[2024-11-10 23:33] LABS: Specific Gravity < 1.005 (1.005-1.030)
--- NOTE | 2024-11-11 03:22 | EDPHYS ---
Physician Documentation [facility] Name: Monique Reina Age: 24 yrs Sex: Female : 2000 Arrival Date: 11/10/2024 Time: 21:31 Bed 7 Private MD: ED Physician Alessandro William HPI: 11/10 22:25 This 24 yrs old Female presents to ER via Ambulatory with complaints of Low Back Pain, cp Abdominal Pain, Vomiting. 22:25 The patient presents with abdominal pain mid abdomen. Onset: The symptoms/episode cp began/occurred suddenly, today. 22:25 Associated signs and symptoms: Pertinent positives: lower back pain, Pertinent cp negatives: constipation, fever, numbness, diarrhea, vomiting. NET ARCHITECT: 21:55 LMP 10/22/2024, unknown bm8 Historical: - Allergies: 23:03 NKA; bm8 - Home Meds: 23:03 None [Active]; bm8 - PMHx: 23:03 None; bm8 - PSHx: 23:03 None; bm8 - Immunization history:: Adult Immunizations up to date. - Infectious Disease History:: Denies. - Social history:: Smoking status: Patient reports the use of cigarette tobacco products, denies chronic smoking, but will smoke occasionally, Patient uses alcohol, Patient/guardian denies using street drugs. ROS: 22:30 Constitutional: Negative for body aches, chills, fever, poor PO intake, cp 22:30 Eyes: Negative for injury, pain, redness, and discharge, cp 22:30 ENT: Negative for drainage from ear(s), ear pain, sore throat, difficulty swallowing, difficulty handling secretions, 22:30 Cardiovascular: Negative for chest pain, palpitations, 22:30 Respiratory: Negative for cough, shortness of breath, wheezing, 22:30 Abdomen/GI: Positive for abdominal pain, nausea, Negative for vomiting, diarrhea, constipation, 22:30 Back: Positive for pain at rest, of the low back, Negative for injury or acute deformity, 22:30 : Negative for urinary symptoms, vaginal bleeding, vaginal discharge, 22:30 Neuro: Negative for altered mental status, dizziness, headache, weakness, 22:30 All other systems are negative, Exam: 22:35 Constitutional: The patient appears in no acute distress, alert, awake, non-toxic, well cp developed, well nourished, uncomfortable, 22:35 Head/Face: Normocephalic, atraumatic. cp 22:35 Eyes: Periorbital structures: appear normal, Conjunctiva: normal, no exudate, no injection, Sclera: no appreciated abnormality, Lids and lashes: appear normal, bilaterally, 22:35 ENT: External ear(s): are unremarkable, Nose: is normal, Mouth: Lips: moist, Oral mucosa: moist, Posterior pharynx: Airway: no evidence of obstruction, patent, 22:35 Chest/axilla: Inspection: normal, Palpation: is normal, no crepitus, no tenderness, 22:35 Cardiovascular: Rate: normal, Rhythm: regular, 22:35 Respiratory: the patient does not display signs of respiratory distress, Respirations: normal, no use of accessory muscles, no retractions, labored breathing, is not present, Breath sounds: are clear throughout, no decreased breath sounds, no stridor, no wheezing, 22:35 Abdomen/GI: Inspection: abdomen appears normal, Bowel sounds: active, all quadrants, Palpation: soft, in all quadrants, moderate abdominal tenderness, in the mid abdomen, rebound tenderness, is not appreciated, voluntary guarding, is elicited in the mid abdomen, 22:35 Back: pain, that is moderate, of the low back, ROM is painful, with all movement, 22:35 Neuro: Orientation: to person, place \T\ time. Mentation: is normal, Motor: moves all fours, strength is normal, Gait: is steady, Vital Signs: 21:55 BP 126 / 78; Pulse 84; Resp 17; Temp 98.8; Pulse Ox 98% ; Weight 70.31 kg; Height 5 ft. bm8 3 in. ; Pain 9/10; 23:06 BP 117 / 67; Pulse 94; Resp 17; Temp 98.8; Pulse Ox 100% ; Pain 6/10; bm8 11/11 00:27 BP 125 / 79; Pulse 86; Resp 17; Temp 98.8; Pulse Ox 98% ; Pain 5/10; bm8 01:42 BP 120 / 80; Pulse 78; Resp 17; Temp 98.8; Pulse Ox 99% ; Pain 0/10; bm8 02:50 BP 109 / 69; Pulse 76; Resp 17; Temp 98.8; Pulse Ox 99% ; Pain 0/10; bm8 03:21 BP 108 / 70; Pulse 74; Resp 17; Temp 98.8; Pulse Ox 100% ; Pain 0/10; bm8 11/10 21:55 Body Mass Index 27.46 (70.31 kg, 160.02 cm) bm8 11/10 21:55 Pain Scale: Adult bm8 23:06 Pain Scale: Adult bm8 11/11 00:27 Pain Scale: Adult bm8 01:42 Pain Scale: Adult bm8 02:50 Pain Scale: Adult bm8 03:21 Pain Scale: Adult bm8 Pick[place] Coma Score: 11/10 22:09 Eye Response: spontaneous(4). Motor Response: obeys commands(6). Verbal Response: bm8 oriented(5). Total: 15. 23:06 Eye Response: spontaneous(4). Motor Response: obeys commands(6). Verbal Response: bm8 oriented(5). Total: 15. 11/11 00:27 Eye Response: spontaneous(4). Motor Response: obeys commands(6). Verbal Response: bm8 oriented(5). Total: 15. 01:42 Eye Response: spontaneous(4). Motor Response: obeys commands(6). Verbal Response: bm8 oriented(5). Total: 15. 02:50 Eye Response: spontaneous(4). Motor Response: obeys commands(6). Verbal Response: bm8 oriented(5). Total: 15. 03:21 Eye Response: spontaneous(4). Motor Response: obeys commands(6). Verbal Response: bm8 oriented(5). Total: 15. MDM: 11/10 22:01 Medical Screening Exam initiated cp 11/11 01:03 Data reviewed: vital signs, nurses notes. ec2 01:03 ED course: Patient signed out to me with pending CT abdomen pelvis. Lab work remarkable ec2 for elevated white count at 14.6. Metabolic profile shows slight hypokalemia of 3.1. Patient with noninfectious appearing urine. Negative testing. Plan is follow-up CT imaging.. 03:21 ED course: CT abdomen pelvis shows no acute intra-abdominal process. Will discharge ec2 home. Return precautions given.. 11/10 22:21 Order name: CBC with Diff; Complete Time: 23:18 cp 11/10 22:21 Order name: CMP; Complete Time: 23:54 cp 11/10 22:21 Order name: Lipase; Complete Time: 23:54 cp 11/10 22:21 Order name: Test, Urine; Complete Time: 23:54 cp 11/10 22:21 Order name: Urinalysis w/ reflexes; Complete Time: 23:54 cp 11/10 23:57 Order name: Test, Serum; Complete Time: 01:00 vc1 11/10 23:18 Order name: CT Abd/Pelvis - IV Contrast Only cp 11/10 22:21 Order name: IV Saline Lock; Complete Time: 22:44 cp 11/10 22:21 Order name: Labs collected and sent; Complete Time: 22:44 cp Administered Medications: 11/10 22:43 Drug: Famotidine IVP 20 mg IVP once; dilute with 10 mL 0.9% NaCl; give over 2 minutes bm8 Route: IVP; Site: right antecubital; 23:07 Follow up: Response: No adverse reaction bm8 22:43 Drug: Ondansetron IVP 4 mg IVP once; over 2 minutes Route: IVP; Site: right antecubital;bm8 23:07 Follow up: Response: No adverse reaction bm8 22:43 Drug: NS 0.9% IV 1000 ml IV at 1 bolus Per protocol; to be given as a bolus over 60 bm8 minutes Route: IV; Rate: 1 bolus; Site: right antecubital; 11/11 03:22 Follow up: Response: No adverse reaction; IV Status: Completed infusion; IV Intake: bm8 1000ml 11/10 22:43 Drug: Dicyclomine IM 20 mg IM once Route: IM; Site: right vastus lateralis; bm8 23:07 Follow up: Response: No adverse reaction bm8 Disposition: 11/11 03:21 I reviewed the patient's care provided by Advanced Practice Provider \T\ agree w/ the ec2 diagnosis \T\ care plan. I personally saw the pt \T\ performed a substantive portion of the visit, incldng all aspects of the (History/Exam/Medical Decision Making). Disposition Summary: 11/11/24 03:21 Discharge Ordered Notes: Location: Home ec2 Condition: Stable ec2 Diagnosis - Other abdominal pain ec2 Followup: ec2 - With: Private Physician - When: - Reason: Re-evaluation by your physician Discharge Instructions: - Discharge Summary Sheet ec2 - Abdominal Pain, Adult, [id number] ec2 Forms: - Medication Reconciliation Form ec2 - Antibiotic Education ec2 - Prescription Opioid Use ec2 - Patient Portal Instructions ec2 - Leadership Thank You Letter ec2 Prescriptions: - dicyclomine 10 mg Oral capsule - take 1 capsule ORAL route 3 times per day; 15 capsule; Refills: 0, Product ec2 Selection Permitted Signatures: Dispatcher [employer] EDMS Shaun Maravilla PA PA cp Corral, Edwin, MD MD ec2 Orlando Quinones, RN RN bm8 Corrections: (The following items were deleted from the chart) 11/10 22:22 22:22 CBC+H.LAB.BRZ ordered. EDMS EDMS 22:22 22:22 COMPREHENSIVE METABOLIC PANEL+C.LAB.BRZ ordered. EDMS EDMS 22:22 22:22 LIPASE+C.LAB.BRZ ordered. EDMS EDMS 22:22 22:22 Test, Urine+UC.LAB.BRZ ordered. EDMS EDMS 22:22 22:22 Urinalysis+U.LAB.BRZ ordered. EDMS EDMS 23:19 23:19 Abdomen Pelvis W Con+CT.RAD.BRZ ordered. EDMS EDMS
--- NOTE | 2024-11-11 03:22 | ER ---
Nurse's Notes [facility] Name: Monique Reina Age: 24 yrs Sex: Female : 2000 Arrival Date: 11/10/2024 Time: 21:31 Bed 7 Private MD: Diagnosis: Other abdominal pain Presentation: 11/10 21:55 Chief complaint: Patient states: I had sudden onset lower back with abd pain that bm8 radiated upward from my belly button. 21:55 Coronavirus screen: At this time, the client does not indicate any symptoms associated bm8 with coronavirus-19. Ebola Screen: Patient negative for fever greater than or equal to 101.5 degrees Fahrenheit, and additional compatible Ebola Virus Disease symptoms Patient denies exposure to infectious person. Patient denies travel to an Ebola-affected area in the 21 days before illness onset. No symptoms or risks identified at this time. Initial Sepsis Screen: Does the patient meet any 2 criteria? No. Patient's initial sepsis screen is negative. Does the patient have a suspected source of infection? No. Patient's initial sepsis screen is negative. Risk Assessment: Do you want to hurt yourself or someone else? Patient reports no desire to harm self or others. Onset of symptoms was November 10, 2024 at 19:00. 21:55 Method Of Arrival: Ambulatory bm8 21:55 Acuity: BOUCHRA 3 bm8 Triage Assessment: 21:55 General: Appears in no apparent distress. uncomfortable. bm8 21:55 General: Behavior is calm, cooperative, appropriate for age. Pain: Complains of pain in bm8 left lower quadrant and left upper quadrant and abdomen and back and posterior aspect of left lateral abdomen and posterior aspect of right lateral abdomen and umbilical area and epigastric area and right low back and left low back and lumbar area Pain currently is 9 out of 10 on a pain scale. EENT: No deficits noted. Neuro: No deficits noted. Level of Consciousness is awake, alert, obeys commands, Oriented to person, place, time, situation, Appropriate for age. Cardiovascular: Denies chest pain, Capillary refill < 3 seconds in bilateral fingers Patient's skin is warm and dry. Respiratory: Airway is patent Trachea midline Respiratory effort is even, unlabored, Respiratory pattern is regular, symmetrical. GI: Abdomen is flat, non-distended, obese, Last BM was November 10, 2024. Bowel sounds present X 4 quads. Abdomen is tender to palpation in left upper quadrant and left lower quadrant Reports lower abdominal pain, upper abdominal pain, nausea, Pain is 9 out of 10 on a pain scale. : Urine is clear, Reports urinary frequency. Derm: No signs and/or symptoms reported regarding the dermatologic system. Musculoskeletal: No signs and/or symptoms reported regarding the musculoskeletal system. DRAW END HAND: 21:55 LMP 10/22/2024, unknown bm8 Historical: - Allergies: 23:03 NKA; bm8 - Home Meds: 23:03 None [Active]; bm8 - PMHx: 23:03 None; bm8 - PSHx: 23:03 None; bm8 - Immunization history:: Adult Immunizations up to date. - Infectious Disease History:: Denies. - Social history:: Smoking status: Patient reports the use of cigarette tobacco products, denies chronic smoking, but will smoke occasionally, Patient uses alcohol, Patient/guardian denies using street drugs. Screenin:09 [facility] ED Fall Risk Assessment (Adult) History of falling in the last 3 months, bm8 including since admission No falls in past 3 months (0 pts) Confusion or Disorientation No (0 pts) Intoxicated or Sedated No (0 pts) Impaired Gait No (0 pts) Mobility Assist Device Used No (0 pt) Altered Elimination No (0 pt) Score/Fall Risk Level 0 - 2 = Low Risk Oriented to surroundings, Maintained a safe environment, Educated pt \T\ family on fall prevention, incl call for assistance when getting out of bed, Assessed \T\ reinforced patient's understanding of fall precautions, Hourly rounding (assess needs \T\ fall precautionary measures) done, Used ambulatory aids as needed (educated on \T\ assisted with), Used gait belt as appropriate. Abuse screen: Denies threats or abuse. Nutritional screening: No deficits noted. Tuberculosis screening: No symptoms or risk factors identified. Assessment: 22:09 Reassessment: Patient appears in no apparent distress at this time. Patient and/or bm8 family updated on plan of care and expected duration. Pain level reassessed. Patient is alert, oriented x 3, equal unlabored respirations, skin warm/dry/pink. General: Appears in no apparent distress. comfortable, Behavior is calm, cooperative, appropriate for age. Pain: Complains of pain in lumbar area, left low back, right low back, epigastric area, umbilical area, posterior aspect of right lateral abdomen and posterior aspect of left lateral abdomen Pain currently is 8 out of 10 on a pain scale. Quality of pain is described as sharp, stabbing, Pain began suddenly. Neuro: No deficits noted. Level of Consciousness is awake, alert, obeys commands, Oriented to person, place, time, situation, Appropriate for age. Cardiovascular: Denies chest pain, Capillary refill < 3 seconds in bilateral fingers Patient's skin is warm and dry. Respiratory: Airway is patent Trachea midline Respiratory effort is even, unlabored, Respiratory pattern is regular, symmetrical. GI: Abdomen is flat, non-distended, obese, Last BM was November 10, 2024. Bowel sounds present X 4 quads. Abdomen is tender to palpation in umbilical area, left upper quadrant and left lower quadrant Reports lower abdominal pain, upper abdominal pain, nausea, Pain is 8 out of 10 on a pain scale. : No signs and/or symptoms were reported regarding the genitourinary system. EENT: No signs and/or symptoms were reported regarding the EENT system. Derm: No signs and/or symptoms reported regarding the dermatologic system. Musculoskeletal: No signs and/or symptoms reported regarding the musculoskeletal system. 23:06 Reassessment: Patient appears in no apparent distress at this time. Patient and/or bm8 family updated on plan of care and expected duration. Pain level reassessed. Patient is alert, oriented x 3, equal unlabored respirations, skin warm/dry/pink. Patient states feeling better. Patient states symptoms have improved. 11/11 00:27 Reassessment: Patient appears in no apparent distress at this time. Patient and/or bm8 family updated on plan of care and expected duration. Pain level reassessed. Patient is alert, oriented x 3, equal unlabored respirations, skin warm/dry/pink. pt denies abd pain, but back pain continues 5/10 Patient states feeling better. Patient states symptoms have improved. 01:42 Reassessment: Patient appears in no apparent distress at this time. Patient and/or bm8 family updated on plan of care and expected duration. Pain level reassessed. Patient is alert, oriented x 3, equal unlabored respirations, skin warm/dry/pink. pt awaiting CT results Patient denies pain at this time. Patient states feeling better. Patient states symptoms have improved. 02:50 Reassessment: No changes from previously documented assessment. bm8 03:21 Reassessment: Patient appears in no apparent distress at this time. No changes from bm8 previously documented assessment. Patient and/or family updated on plan of care and expected duration. Pain level reassessed. Patient is alert, oriented x 3, equal unlabored respirations, skin warm/dry/pink. Patient denies pain at this time. Patient states feeling better. Patient states symptoms have improved. Vital Signs: 11/10 21:55 BP 126 / 78; Pulse 84; Resp 17; Temp 98.8; Pulse Ox 98% ; Weight 70.31 kg; Height 5 ft. bm8 3 in. ; Pain 9/10; 23:06 BP 117 / 67; Pulse 94; Resp 17; Temp 98.8; Pulse Ox 100% ; Pain 6/10; bm8 11/11 00:27 BP 125 / 79; Pulse 86; Resp 17; Temp 98.8; Pulse Ox 98% ; Pain 5/10; bm8 01:42 BP 120 / 80; Pulse 78; Resp 17; Temp 98.8; Pulse Ox 99% ; Pain 0/10; bm8 02:50 BP 109 / 69; Pulse 76; Resp 17; Temp 98.8; Pulse Ox 99% ; Pain 0/10; bm8 03:21 BP 108 / 70; Pulse 74; Resp 17; Temp 98.8; Pulse Ox 100% ; Pain 0/10; bm8 11/10 21:55 Body Mass Index 27.46 (70.31 kg, 160.02 cm) bm8 11/10 21:55 Pain Scale: Adult bm8 23:06 Pain Scale: Adult bm8 11/11 00:27 Pain Scale: Adult bm8 01:42 Pain Scale: Adult bm8 02:50 Pain Scale: Adult bm8 03:21 Pain Scale: Adult bm8 [place] Coma Score: 11/10 22:09 Eye Response: spontaneous(4). Motor Response: obeys commands(6). Verbal Response: bm8 oriented(5). Total: 15. 23:06 Eye Response: spontaneous(4). Motor Response: obeys commands(6). Verbal Response: bm8 oriented(5). Total: 15. 11/11 00:27 Eye Response: spontaneous(4). Motor Response: obeys commands(6). Verbal Response: bm8 oriented(5). Total: 15. 01:42 Eye Response: spontaneous(4). Motor Response: obeys commands(6). Verbal Response: bm8 oriented(5). Total: 15. 02:50 Eye Response: spontaneous(4). Motor Response: obeys commands(6). Verbal Response: bm8 oriented(5). Total: 15. 03:21 Eye Response: spontaneous(4). Motor Response: obeys commands(6). Verbal Response: bm8 oriented(5). Total: 15. ED Course: 11/10 21:34 Patient arrived in ED. im 21:48 Shaun Maravilla PA is PHCP. cp 21:48 Aelssandro William MD is Attending Physician. cp 21:55 Arm band placed on right wrist. bm8 22:09 Orlando Quinones, RN is Primary Nurse. bm8 22:09 Patient has correct armband on for positive identification. Placed in gown. Bed in low bm8 position. Call light in reach. Side rails up X 1. Adult w/ patient. Client placed on continuous cardiac and pulse oximetry monitoring. NIBP monitoring applied. chief engineer's helper on. Pulse ox on. NIBP on. Door closed. Noise minimized. Warm blanket given. Pillow given. Verbal reassurance given. Head of bed elevated. 22:09 No provider procedures requiring assistance completed. Initial lab(s) drawn, by ms, bm8 sent to lab. Inserted saline lock: 20 gauge in right antecubital area, using aseptic technique. Blood collected. Flushed with 10 mL NS. Patient maintains SpO2 saturation greater than 95% on room air. 23:03 Triage completed. bm8 11/11 00:49 CT Abd/Pelvis - IV Contrast Only In Process Unspecified. EDMS 03:21 Provided Education on: post err care. bm8 03:21 IV discontinued, intact, bleeding controlled, No redness/swelling at site. Pressure bm8 dressing applied. Administered Medications: 11/10 22:43 Drug: Famotidine IVP 20 mg IVP once; dilute with 10 mL 0.9% NaCl; give over 2 minutes bm8 Route: IVP; Site: right antecubital; 23:07 Follow up: Response: No adverse reaction bm8 22:43 Drug: Ondansetron IVP 4 mg IVP once; over 2 minutes Route: IVP; Site: right antecubital;bm8 23:07 Follow up: Response: No adverse reaction bm8 22:43 Drug: NS 0.9% IV 1000 ml IV at 1 bolus Per protocol; to be given as a bolus over 60 bm8 minutes Route: IV; Rate: 1 bolus; Site: right antecubital; 11/11 03:22 Follow up: Response: No adverse reaction; IV Status: Completed infusion; IV Intake: bm8 1000ml 11/10 22:43 Drug: Dicyclomine IM 20 mg IM once Route: IM; Site: right vastus lateralis; bm8 23:07 Follow up: Response: No adverse reaction bm8 Medication: 22:09 VIS not applicable for this client. bm8 Intake: 11/11 03:22 IV: 1000ml; Total: 1000ml. bm8 Outcome: 03:21 Discharge ordered by . [email or web address] 03:21 Discharged to home ambulatory, with family, with friend, bm8 03:21 Condition: stable 03:21 Discharge instructions given to patient, family, Instructed on discharge instructions, follow up and referral plans. medication usage, safety practices, Demonstrated understanding of instructions, follow-up care, medications, 03:24 Prescriptions given X 1, bm8 03:30 Patient left the ED. vc1 Signatures: Dispatcher [employer] EDMS Shaun Maravilla PA PA cp Calcote, Vanessa, RN RN vc1 Daniela Lucero Edwin, MD MD ec2 Orlando Quinones RN RN bm8
[2024-11-11 03:34] VITALS: TEMP 98.8
[2024-11-11 03:44] VITALS: BP 108/70; O2SAT 100
--- NOTE | 2024-11-11 03:52 | RAD REPORT ---
EXAM: CT abdomen and pelvis with IV contrast CLINICAL DATA: 24 years Female ABD PAIN TECHNICAL DATA: Axial CT imaging of the abdomen and pelvis was performed following the administration of intravenous contrast.. Oral contrast was not administered. Sagittal and coronal reconstructed images were then performed. The CT study is performed according to ALARA (as low as reasonably achievable) or A CANDICE/IMAGE GENTLY, with automatic adjustment of mA and/or kV according to patient size. Performed on: 11/11/2024 at 12:56 AM. Comparison: CT abdomen and pelvis performed on 10/23/2023 FINDINGS: Lung bases: The lung bases are clear. The heart is normal in size. Liver: The liver is normal in size and configuration. No focal hepatic abnormalities are identified. Liver attenuation is within normal limits. The hepatic and portal veins are patent. Spleen: The spleen is normal in size, configuration and attenuation. Gallbladder and bile duct: The gallbladder is well distended and unremarkable. There is no biliary ductal dilatation. Pancreas: The pancreas is grossly normal in size and configuration. Adrenal Glands: The adrenal glands are normal in size and configuration. Kidneys: The kidneys are normal in size and configuration. There is no evidence of hydronephrosis. Th ere is no evidence of nephrolithiasis. No definite solid or cystic renal mass lesions are identified. Stomach: The stomach is grossly normal. There is no definite hiatal hernia. Bowel: The bowel gas pattern is non specific and non obstructive. Appendix: The appendix is normal. Free air: There is no evidence of free air. Free fluid: There is no evidence of free fluid. Vasculature: The aorta is normal in caliber and contour. The inferior vena cava is grossly unremarkab le. Lymphadenopathy: No pathologic lymphadenopathy is identified. Bladder: The bladder is well distended and smooth in contour. Reproductive: The uterus is grossly within normal limits. Bones: No acute osseous abnormalities are identified. Soft tissues: No acute soft tissue abnormalities are identified. IMPRESSION: No evidence of acute intra-abdominal or intrapelvic pathology. There are no findings on this examinat ion to explain the patient's reported clinical symptoms. Electronically signed by: Ekta Arias DO 11/11/2024 03:06 AM [facility] Due to temporary technical issues with the PACS/Owlient reporting system, reports are being darya d by the in-house radiologist without review as a courtesy to ensure prompt reporting the interpreting radiologist is fully responsible for the content of the report. Transcribed Date/Time: 11/11/2024 3:51 AM
== END 2024-11-11 03:30 | disposition home or self-care (01) ==
LOC: ER 21:31
DX: R10.9 Unspecified abdominal pain (principal); M54.50 Low back pain, unspecified; F17.210 Nicotine dependence, cigarettes, uncomplicated
CPT/HCPCS: 96361; 85025; 81001; 36415; 84703; 81025; 83690; 80053; 74177; 96375; 96372; 96374; 99285; Q9967; J0500; J2405; J7030

== ENCOUNTER 2025-03-14 11:52 | Emergency (ER) | payer BC ==
--- OUTSIDE RECORDS SUMMARY | 2025-03-14 11:56 | XMS REPORT | Continuity of Care Document ---
Author Name Unknown Address [address] [facility] [address] [place] [address] [facility] Address [address] [facility] [place] [address] Care Team Providers Care Chemistry Professor Name Role Phone Unknown, Physician Primary Care Physician UnaJESSICA Burger Attending Clinician Unavailable JESSICA MOCTEZUMA Attending Clinician Unavailable Jessica Moctezuma MD Attending Clinician [phone] Francy Lang DNP Attending Clinician [phone] FRANCY LANG Attending Clinician Unavailable Doctor Unassigned, [place] Attending Clinician U javier 2, [facility] Attending Clinician Unavailable SHENA ESTEBAN Attending Clinician Unavailable Shena Esteban PA-C Attending Clinician [phone] LISTER_MELISSA Attending Clinician Unavailable DARREN SANDS Attending Clinician Unavailable ILEANA DOW Attending Clinician Unavailable Brandon Perez MD Attending Clinicia n Checo Ward MD, Leonard Attending Clinician Only, Adc Test Attending Clinician Unavailable Zina Drew MD Attending Clinician ZINA DREW Attending Clinician Unavailabl e Ultrasound, Adc Mfm Attending Clinician UnavailEvans Lynch MD Attending Clinician [phone] EVANS PARK Attending Clinician Unavailable EVANS PARK Attending Clinician Unavailable Cm MAYERS, Ashley James Attending Clinician [phone] Case Noni CRESPO Attending Clinician Unavailable MARIE CORBETT Attending Clinician UnaMarie Orourke MD Attending Clinician + DARREN SANDS M.D. Attending Clinician Unavailab ILEANA Regalado NP Attending Clinician Unavaila NYDIA Dunn Attending Clinician Unavailable BHAVANI LANGFORD Attending Clinician Unavailable JESSICA MOCTEZUMA Admitting Clinician Unavailable SHENA ESTEBAN Admitting Clinician Unavailable KATELYNN Admitting Clinician Unavailable Rhianna BAEZ, Jessica Lopes Admitting Clinician [phone] Payers Payer Name Policy Type Policy Number Effective Date Expirati on Date Source [employer] PPO AND OUT OF STATE [id number] 2017 00:00:00 [place] [id number] 2017 00:00:00 [facility] [id number] 2021 00:00:00 [place] [id number] 2017 00:00:[place] [id number] 2017 00:00:00 Problems Condition Name Condition Details Condition Category Status Onset Date Resolution Date Last Treatment Date Treating Clinician Comments Source Allergic conjunctiv itis Allergic Conjunctiv itis Problem Active 01-09 00:00: 00 [facility] Acute sinusitis Acute Sinusitis Problem Active 01-09 00:00: 00 [facility] Increased frequency of urination Increased Frequency of Urination Problem Active 01-09 00:00: 00 [place] [facility] Acute tonsilliti s Acute Tonsilliti s Problem Active 1-13 00:00: 00 [place] [facility] Cough Cough Problem Active 1-13 00:00: 00 [facility] Allergic rhinitis Allergic rhinitis Disease Active 1-02 00:00: 00 [facility] Asthma Asthma Problem Active 2021-11 0-12 00:00: 00 [facility] depression depression Disease Active 3-01 00:00: 00 [facility] History of asthma History of asthma Disease Active 2020-11 1-16 00:00: 00 [facility] Obesity (BMI 30-39.9) Obesity (BMI 30-39.9) Disease Active 2020-11 1-15 00:00: 00 [facility] Injury of finger Injury of finger Disease Active 2018-11 2-04 00:00: 00 [facility] Abnormal vaginal bleeding Abnormal vaginal bleeding Disease Resolve d 1-02 00:00: 00 2023-09-06 00:00:00 2023-09-06 13:48:05 [facility] Urinary tract infection Urinary tract infection Disease Resolve d 0 4-18 00:00: 00 2023-09-06 00:00:00 2023-09-06 13:48:06 [facility] Initial encounter for management of contracept axel patch use Initial encounter for management of contracept axel patch use Disease Resolve d 3-01 00:00: 00 2023-09-06 00:00:00 2023-09-06 13:48:09 [facility] Liveborn infant, of hendrix , born in hospital by vaginal delivery Liveborn , of hendrix , born in hospital by vaginal delivery Disease Resolve d 2021-0 1-27 00:00: 00 2022-01-12 00:00:00 2022-01-12 12:57:36 [facility] Vacuum-ass isted vaginal delivery Vacuum-ass isted vaginal delivery Disease Resolve d 2021-0 1-27 00:00: 00 2022-01-12 00:00:00 2022-01-12 12:57:36 [facility] Encounter for planned induction of labor Encounter for planned induction of labor Disease Resolve d 1-24 00:00: 00 2022-01-12 00:00:00 2022-01-12 12:57:36 [facility] 39 weeks gestation of 39 weeks gestation of Disease Resolve d 2020-11 2-30 00:00: 00 2022-01-12 00:00:00 2022-01-12 12:57:36 [facility] Encounter for supervisio n of normal first in third trimester Encounter for supervisio n of normal first in third trimester Disease Resolve d 2020-11 1-16 00:00: 00 2022-01-12 00:00:00 2022-01-12 13:26:55 [facility] Uterine contractio ns during Uterine contractio ns during Disease Resolve d 2020-11 2-30 00:00: 00 2021-12-07 00:00:00 2021-12-07 19:05:43 [facility] Nausea and vomiting during Nausea and vomiting during Disease Resolve d 2020-11 2- 00:00: 00 2021-12-07 00:00:00 2021-12-07 19:05:39 [facility] Nausea and vomiting during Nausea and vomiting during Disease Resolve d 2020-11 2-30 00:00: 00 2021-12-07 00:00:00 2021-12-07 19:05:39 [facility] Allergies, Adverse Reactions, Alerts Allergy Name Allergy Type Status Severity Reaction(s) Onset Date Inactive Date Treating Clinician Comments Source NO KNOWN ALLERGIE S Drug Class Active [facility] Social History Social Habit Start Date Stop Date Quantity Comments Source ASSERTION Not [facility] History of tobacco use Passive smoker [facility] Alcoholic beverage intake 2024-10-23 00:00:00 2024-10-23 00:00:00 Lifetime non-drinker (finding) [facility] History of Social function 2024-10-21 00:00:00 2024-10-21 00:00:00 [facility] Exposure to SARS-CoV-2 (event) 2022-11-05 00:00:00 2022-11-15 14:48:00 Not sure [facility] Tobacco use and exposure 2022-09-06 00:00:00 2022-09-06 00:00:00 Smokeless tobacco non-user [facility] Alcohol intake 2022-07-06 00:00:00 2022-07-06 00:00:00 Lifetime non-drinker (finding) [facility] Sex Assigned At 2000 00:00:00 2000 00:00:00 [facility] Smoking Status Start Date Stop Date Source Never Smoker [facility] Medications Ordered Medication Name Filled Medication Name Start Date Stop Date Current Medication? Ordering Clinician Indication Dosage Frequency Signature (SIG) Comments Components Source norethindro ne-e.estrad ioL-iron (LO LOESTRIN FE) 1 mg-10 mcg (24)/10 mcg (2) per tablet 01-11 00:00: 00 Yes [id number] 1{tbl} Take 1 tablet by mouth in the morning. [facility] norethindro ne-e.estrad ioL-iron (LOESTRIN FE 1/20) 1 mg-20 mcg (21)/75 mg (7) tablet 2022-11 0- 00:00: 00 01-11 00:00 :00 No [id number] 1{tbl} Take 1 tablet by mouth in the morning. [facility] norelgestro min-ethinyl estradiol 150-35 mcg/24 hr patch 2021-11 0- 00:00: 00 09-06 00:00 :00 No [id number] 1{patch } Apply 1 Patch to skin weekly. [facility] Nitrofurant oin&Nit. Macrocryst (MACROBID) 100 mg capsule - 00:00: 00 03-21 04:59 :00 No [id number] 100mg Take 1 capsule by mouth 2 (two) times daily for 5 days. [facility] sulfamethox azole-trime thoprim 800-160 mg per tablet 4-18 00:00: 00 03-15 00:00 :00 No TAKE 1 TABLET BY MOUTH IN THE MORNING AND 1 TABLET IN THE EVENING. DO ALL THIS FOR 7 DAYS. [facility] norelgestro min-ethinyl estradiol 150-35 mcg/24 hr patch 01-12 00:00: 00 09-06 00:00 :00 No [id number] 1{patch } Apply 1 Patch to skin weekly. [facility] vitamin w/FA tablet 12-10 00:00: 03-15 00:00 :00 No [id number] 1{tbl} Take 1 tablet by mouth daily. [facility] docusate calcium 240 mg capsule 12-10 00:00: 03-15 00:00 :00 No [id number] 240mg Take 1 capsule by mouth once daily as needed for Constipati on. [facility] ferrous sulfate 325 mg (65 mg iron) tablet 12-10 00:00: 03-15 00:00 :00 No [id number] 325mg Take 1 tablet by mouth 2 (two) times daily. [facility] ibuprofen 600 mg tablet 12-10 00:00: 03-15 00:00 :00 No [id number] 600mg Take 1 tablet by mouth every 6 (six) hours as needed (Pain). Take with food or milk. [facility] albuterol sulfate HFA 90 mcg/actuati on [...] as needed. for wheezing or SOB. [facility] Bromfed DM 2 mg-30 [...] route as needed. for cough and congestion [facility] Tamiflu 75 mg capsule Take 1 capsule twice a day by oral route for 5 days. Tamiflu 75 mg capsule Take 1 capsule twice a day by oral route for 5 days. No 1capsul e(s) BID Tamiflu 75 mg capsule Take 1 capsule twice a day by oral route for 5 days. [facility] Xulane 150 mcg-35 mcg/24 hr transdermal patch APPLY 1 PATCH TO SKIN WEEKLY Xulane 150 mcg-35 mcg/24 hr transdermal patch APPLY 1 PATCH TO SKIN WEEKLY No Xulane 150 mcg-35 mcg/24 hr transderma l patch APPLY 1 PATCH TO SKIN WEEKLY [facility] Zithromax Z-Moshe 250 mg tablet TAKE [...] ORAL ROUTE ONCE DAILY FOR 4 DAYS [facility] Program [place] Fe 12/03 (28) 1 mg-20 mcg (21)/75 mg (7) tablet TAKE 1 TABLET BY MOUTH DAILY [place] Fe 12/03 (28) 1 mg-20 mcg (21)/75 mg (7) tablet TAKE 1 TABLET BY MOUTH DAILY No [place] Fe 12/03 (28) 1 mg-20 mcg (21)/75 mg (7) tablet TAKE 1 TABLET BY MOUTH DAILY [facility] Program fluconazole 150 mg tablet Take 1 tablet every day by oral route. fluconazole 150 mg tablet Take 1 tablet every day by oral route. No fluconazol e 150 mg tablet Take 1 tablet every day by oral route. [facility] Lo Loestrin Fe 1 mg-10 mcg (24)/10 mcg (2) tablet TAKE 1 TABLET BY MOUTH EVERY DAY Lo Loestrin Fe 1 mg-10 mcg (24)/10 mcg (2) tablet TAKE 1 TABLET BY MOUTH EVERY DAY No Lo Loestrin Fe 1 mg-10 mcg (24)/10 mcg (2) tablet TAKE 1 TABLET BY MOUTH EVERY DAY [facility] Program metronidazo le 500 mg tablet Take 1 tablet twice a day by oral route for 7 days. metronidazo le 500 mg tablet Take 1 tablet twice a day by oral route for 7 days. No metronidaz ole 500 mg tablet Take 1 tablet twice a day by oral route for 7 days. [facility] Program amoxicillin 875 mg-potassiu m clavulanate 125 mg tablet Take 1 tablet every 12 hours by oral route for 10 days. amoxicillin 875 mg-potassiu m clavulanate 125 mg tablet Take 1 tablet every 12 hours by oral route for 10 days. No 1 Q12H amoxicilli n 875 mg-potassi um clavulanat e 125 mg tablet Take 1 tablet every 12 hours by oral route for 10 days. [facility] Pataday Once Daily Relief 0.2 % eye drops INSTILL 1 DROP INTO AFFECTED EYE(S) BY OPHTHALMIC ROUTE ONCE DAILY Pataday Once Daily Relief 0.2 % eye drops INSTILL 1 DROP INTO AFFECTED EYE(S) BY OPHTHALMIC ROUTE ONCE DAILY No Pataday Once Daily Relief 0.2 % eye drops INSTILL 1 DROP INTO AFFECTED EYE(S) BY OPHTHALMIC ROUTE ONCE DAILY [facility] benzonatate 200 mg capsule Take 1 capsule 3 times a day by oral route as needed, for cough. benzonatate 200 mg capsule Take 1 capsule 3 times a day by oral route as needed, for cough. No 1capsul e(s) TID benzonatat e 200 mg capsule Take 1 capsule 3 times a day by oral route as needed, for cough. [facility] Immunizations Ordered Immunization Name Filled Immunization Name Date Status Comments Source Influenza Virus Vaccine Quad IM, Preserv and ABX Free 6 MO-64 YRS (FLUCELVAX) 2022-09-06 00:00:00 Completed [facility] Influenza Virus Vaccine Quad IM, Preserv and ABX Free 6 MO-64 YRS 2022-09-06 00:00:00 Completed [facility] Influenza Virus Vaccine Quad IM, Preserv and ABX Free 6 MO-64 YRS 2022-09-06 00:00:00 Completed [facility] Influenza Virus Vaccine Quad IM, Preserv and ABX Free 6 MO-64 YRS 2022-09-06 00:00:00 Completed [facility] Influenza Virus Vaccine Quad IM, Preserv and ABX Free 6 MO-64 YRS 2022-09-06 00:00:00 Completed [facility] Influenza Virus Vaccine Quad IM, Preserv and ABX Free 6 MO-64 YRS 2022-09-06 00:00:00 Completed [facility] Influenza Virus Vaccine Quad IM, Preserv and ABX Free 6 MO-64 YRS 2022-09-06 00:00:00 Completed [facility] Influenza Virus Vaccine Quad IM, Preserv and ABX Free 6 MO-64 YRS 2022-09-06 00:00:00 Completed [facility] Influenza Virus Vaccine Quad IM, Preserv and ABX Free 6 MO-64 YRS 2022-09-06 00:00:00 Completed [facility] TDAP 2021-09-28 00:00:00 Completed Rho (d) Immune Globulin 2021-09-28 00:00:00 Completed [facility] TDAP 2021-09-28 00:00:00 Completed [facility] Rho (d) Immune Globulin 2021-09-28 00:00:00 Completed [facility] TDAP 2021-09-28 00:00:00 Completed [facility] Rho (d) Immune Globulin 2021-09-28 00:00:00 Completed [facility] TDAP 2021-09-28 00:00:00 Completed [facility] Rho (d) Immune Globulin 2021-09-28 00:00:00 Completed [facility] TDAP 2021-09-28 00:00:00 Completed [facility] Rho (d) Immune Globulin 2021-09-28 00:00:00 Completed [facility] TDAP 2021-09-28 00:00:00 Completed [facility] Rho (d) Immune Globulin 2021-09-28 00:00:00 Completed [facility] TDAP 2021-09-28 00:00:00 Completed [facility] Rho (d) Immune Globulin 2021-09-28 00:00:00 Completed [facility] TDAP 2021-09-28 00:00:00 Completed [facility] Rho (d) Immune Globulin 2021-09-28 00:00:00 Completed [facility] TDAP 2021-09-28 00:00:00 Completed [facility] Rho (d) Immune Globulin 2021-09-28 00:00:00 Completed [facility] TDAP 2021-09-28 00:00:00 Completed [facility] Rho (d) Immune Globulin 2021-09-28 00:00:00 Completed [facility] Influenza Virus Vaccine 2021-09-11 00:00:00 Completed Influenza Virus Vaccine 2021-09-11 00:00:00 Completed [facility] Influenza Virus Vaccine 2021-09-11 00:00:00 Completed [facility] Influenza Virus Vaccine 2021-09-11 00:00:00 Completed [facility] Influenza Virus Vaccine 2021-09-11 00:00:00 Completed [facility] Influenza Virus Vaccine 2021-09-11 00:00:00 Completed [facility] Influenza Virus Vaccine 2021-09-11 00:00:00 Completed [facility] Influenza Virus Vaccine 2021-09-11 00:00:00 Completed [facility] Influenza Virus Vaccine 2021-09-11 00:00:00 Completed [facility] Influenza Virus Vaccine 2021-09-11 00:00:00 Completed [facility] TDAP Unknown Completed [facility] Influenza Virus Vaccine Unknown Completed [facility] Rho (d) Immune Globulin Unknown Completed [facility] Influenza Virus Vaccine Quad IM, Preserv and ABX Free 6 MO-64 YRS (FLUCELVAX) Unknown Completed [facility] TDAP Unknown Completed [facility] Influenza Virus Vaccine Unknown Completed [facility] Rho (d) Immune Globulin Unknown Completed [facility] Influenza Virus Vaccine Quad IM, Preserv and ABX Free 6 MO-64 YRS (FLUCELVAX) Unknown Completed [facility] TDAP Unknown Completed [facility] Influenza Virus Vaccine Unknown Completed [facility] Rho (d) Immune Globulin Unknown Completed [facility] Influenza Virus Vaccine Quad IM, Preserv and ABX Free 6 MO-64 YRS (FLUCELVAX) Unknown Completed [facility] TDAP Unknown Completed [facility] Influenza Virus Vaccine Unknown Completed [facility] Rho (d) Immune Globulin Unknown Completed [facility] Influenza Virus Vaccine Quad IM, Preserv and ABX Free 6 MO-64 YRS (FLUCELVAX) Unknown Completed [facility] TDAP Unknown Completed [facility] Influenza Virus Vaccine Unknown Completed [facility] Rho (d) Immune Globulin Unknown Completed [facility] Influenza Virus Vaccine Quad IM, Preserv and ABX Free 6 MO-64 YRS (FLUCELVAX) Unknown Completed [facility] TDAP Unknown Completed [facility] Influenza Virus Vaccine Unknown Completed [facility] Rho (d) Immune Globulin Unknown Completed [facility] Influenza Virus Vaccine Quad IM, Preserv and ABX Free 6 MO-64 YRS (FLUCELVAX) Unknown Completed [facility] TDAP Unknown Completed [facility] Influenza Virus Vaccine Unknown Completed [facility] Rho (d) Immune Globulin Unknown Completed [facility] Influenza Virus Vaccine Quad IM, Preserv and ABX Free 6 MO-64 YRS (FLUCELVAX) Unknown Completed [facility] TDAP Unknown Completed [facility] Influenza Virus Vaccine Unknown Completed [facility] Rho (d) Immune Globulin Unknown Completed [facility] Influenza Virus Vaccine Quad IM, Preserv and ABX Free 6 MO-64 YRS (FLUCELVAX) Unknown Completed [facility] Vital Signs Vital Name Observation Time Observation Value Comments S ource Body Weight 2025-01-09 00:00:00 2532 [oz_av] [facility] BP Systolic 2025-01-09 00:00:00 127 mm[Hg] [facility] Height 2025-01-09 00:00:00 63 [in_i] [facility] BP Diastolic 2025-01-09 00:00:00 63 mm[Hg] [facility] BMI (Body Mass Index) 2025-01-09 00:00:00 28 kg/m2 [facility] BP Systolic 2024-11-26 00:00:00 113 mm[Hg] [facility] BP Diastolic 2024-11-26 00:00:00 73 mm[Hg] [facility] Height 2024-11-26 00:00:00 63 [in_i] [facility] BMI (Body Mass Index) 2024-11-26 00:00:00 28.3 kg/m2 [facility] Body Weight 2024-11-26 00:00:00 2560 [oz_av] [facility] Systolic blood pressure 2024-10-23 21:36:00 133 mm[Hg] [facility] Diastolic blood pressure 2024-10-23 21:36:00 70 mm[Hg] [facility] Heart rate 2024-10-23 21:36:00 79 /min [facility] Body temperature 2024-10-23 21:36:00 36.78 Raven [facility] Respiratory rate 2024-10-23 21:36:00 18 /min [facility] Body height 2024-10-23 21:36:00 160 cm [facility] Body weight 2024-10-23 21:36:00 70.67 kg [facility] BMI 2024-10-23 21:36:00 27.60 kg/m2 [facility] Systolic blood pressure 2024-01-11 19:46:00 116 mm[Hg] [facility] Diastolic blood pressure 2024-01-11 19:46:00 73 mm[Hg] [facility] Heart rate 2024-01-11 19:46:00 77 /min [facility] Body temperature 2024-01-11 19:46:00 36.72 Raven [facility] Respiratory rate 2024-01-11 19:46:00 18 /min [facility] Body height 2024-01-11 19:46:00 160 cm [facility] Body weight 2024-01-11 19:46:00 66.225 kg [facility] BMI 2024-01-11 19:46:00 25.86 kg/m2 [facility] Systolic blood pressure 2023-09-06 18:34:00 118 mm[Hg] [facility] Diastolic blood pressure 2023-09-06 18:34:00 75 mm[Hg] [facility] Heart rate 2023-09-06 18:34:00 89 /min [facility] Body temperature 2023-09-06 18:34:00 36.72 Raven [facility] Body height 2023-09-06 18:34:00 160 cm [facility] Body weight 2023-09-06 18:34:00 65.409 kg [facility] BMI 2023-09-06 18:34:00 25.54 kg/m2 [facility] Systolic blood pressure 2022-11-15 21:08:00 100 mm[Hg] [facility] Diastolic blood pressure 2022-11-15 21:08:00 67 mm[Hg] [facility] Heart rate 2022-11-15 21:08:00 76 /min [facility] Body temperature 2022-11-15 21:08:00 36.56 Raven [facility] Body height 2022-11-15 21:08:00 160 cm [facility] Body weight 2022-11-15 21:08:00 59.421 kg [facility] BMI 2022-11-15 21:08:00 23.21 kg/m2 [facility] Systolic blood pressure 2022-09-06 18:21:00 111 mm[Hg] [facility] Diastolic blood pressure 2022-09-06 18:21:00 73 mm[Hg] [facility] Heart rate 2022-09-06 18:21:00 73 /min [facility] Body temperature 2022-09-06 18:21:00 36.67 Raven [facility] Body height 2022-09-06 18:21:00 160 cm [facility] Body weight 2022-09-06 18:21:00 60.51 kg [facility] BMI 2022-09-06 18:21:00 23.63 kg/m2 [facility] BP Diastolic 2022-08-25 00:00:00 80 mm[Hg] Roland [facility] Height 2022-08-25 00:00:00 63 [in_i] Lara orda [facility] BMI (Body Mass Index) 2022-08-25 00:00:00 24.3 kg/m2 [place] [facility] BP Systolic 2022-08-25 00:00:00 114 mm[Hg] Andrew palacios [facility] Body Weight 2022-08-25 00:00:00 2194 [oz_av] Manny ramos [facility] Body height 2022-07-06 15:49:00 160 [facility] Body weight 2022-07-06 15:49:00 58.968 kg [facility] BMI 2022-07-06 15:49:00 23.03 kg/m2 [facility] Systolic blood pressure 2022-03-15 19:09:00 108 mm[Hg] [facility] Diastolic blood pressure 2022-03-15 19:09:00 66 mm[Hg] [facility] Heart rate 2022-03-15 19:09:00 72 /min [facility] Body temperature 2022-03-15 19:09:00 37 Raven [facility] Respiratory rate 2022-03-15 19:09:00 16 /min [facility] Body height 2022-03-15 19:09:00 160 cm [facility] Body weight 2022-03-15 19:09:00 62.313 kg [facility] BMI 2022-03-15 19:09:00 24.33 kg/m2 [facility] Procedures Procedure Date / Time Performed Performing Clinician Source [facility] PATIENT FINANCIAL POLICY 2023-09-06 18:21:27 Doctor Unassigned, Kane [facility] POCT TEST 2023-09-06 00:00:00 Jessica Moctezuma [facility] US PELVIS COMPLETE WITH TRANSVAGINAL 2022-11-19 21:46:55 Shena Esteban [facility] ASSIGNMENT OF BENEFITS 2022-11-15 20:47:18 Docto r Unassigned, [place] [facility] POCT TEST 2022-11-15 00:00:00 Anselmo Esteban [facility] [facility] FLU VACC (), 6 MO-64 YRS, .5ML, IM, QUAD (FLUCELVAX) 2022-09-06 18:33:10 Jessica Moctezuma [facility] CONSENT FOR CONTRACEPTION 2022-09-06 05:01:00 Doctor Unassigned, Kane [facility] POCT TEST 2022-09-06 00:00:00 Jessica Moctezuma [facility] POCT URINALYSIS W/O SPECIFIC GRAVITY 2022-03-15 00:00:00 Jessica Moctezuma [facility] Plan of Care Planned Activity Planned Date Details Comments Source Diagnostic Test Pending 2022-08-25 00:00:00 influenza virus A + B and SARS CoV 2 (COVID-19) and RSV RNA panel, DAVE+probe, respiratory specimen [code = influenza virus A + B and SARS CoV 2 (COVID-19) and RSV RNA panel, DAVE+probe, respiratory specimen] [facility] Diagnostic Test Pending 2022-08-25 00:00:00 rapid strep group A, throat [code = rapid strep group A, throat] [facility] Encounters Start Date/Time End Date/Time Encounter Type Admission Type Attending Clinicians Care Facility Care Department Encounter ID Source 2022-08-23 06:51:12 Outpatient [facility] [id number] [facility] 2022-07-22 12:04:36 Outpatient [facility] [id number] [facility] 2022-07-09 11:17:07 Outpatient [facility] [id number] [facility] 2022-07-06 09:49:13 Outpatient [facility] [id number] [facility] 2022-07-01 17:39:17 Outpatient [facility] [id number] [facility] 2022-06-28 11:10:49 Outpatient [facility] [id number] [facility] 2021-11-25 16:52:12 Outpatient P [facility] [id number] [facility] 2021-10-08 19:10:54 Outpatient P [facility] [id number] [facility] 2025-10-23 15:15:00 2025-10-23 15:15:00 Outpatient R ARTIE MOCTEZUMAPERRY MOCTEZUMA JESSICA [facility] [id number] [facility] 2025-03-29 14:00:00 2025-03-29 14:00:00 Outpatient R JESSICA MOCTEZUMA JESSICA [facility] [id number] [facility] 2025-03-06 00:00:00 2025-03-06 10:13:30 Telephone Rhianna Jessica Moses [facility] 1..840.114 350.1.13.10 4.2.7.2.686 [id number] 134 [id number] [facility] 2025-02-19 00:00:00 2025-02-19 15:34:47 Patient Secure Msg Jessica Moctezuma [facility] 1.2.840.114 350.1.13.10 4.2.7.2.686 [id number] 134 [id number] [facility] 2025-01-09 00:00:00 2025-01-09 00:00:00 [facility] C: [address] [place] [address] , Ph. [facility] [id number] [facility] 2024-11-26 00:00:00 2024-11-26 00:00:00 [facility] [place] C: [address] [place] [address] , Ph. [facility] [id number] [facility] 2024-10-23 15:15:00 2024-10-23 15:55:35 Outpatient R JESSICA MOCTEZUMA VIEN [facility] [id number] [facility] 2024-10-23 15:15:00 2024-10-23 15:55:35 Office Visit Francy Lang [facility] BUILDING 1.2.840.114 350.1.13.10 4.2.7.2.686 [id number] 134 [id number] [facility] 2024-04-13 00:00:00 2024-05-19 18:25:58 Patient Secure Msg Doctor Unassigned, Kane [facility] 1.2.840.114 350.1.13.10 4.2.7.2.686 [id number] [facility] 2024-04-13 00:00:00 2024-04-13 11:59:39 Refill Jessica Moctezuma [facility] 1.2.840.114 350.1.13.10 4.2.7.2.686 [id number] [facility] 2024-04-11 14:30:00 2024-04-11 14:30:00 Outpatient R JESSICA MOCTEZUMA [facility] [id number] [facility] 2024-01-27 00:00:00 2024-01-27 00:00:00 Telephone Jessica Moctezuma [facility] 1.2.840.114 350.1.13.10 4.2.7.2.686 [id number] 134 [id number] [facility] 2024-01-11 14:00:00 2024-01-11 14:00:00 Office Visit Jessica Moctezuma [facility] 1.2.840.114 350.1.13.10 4.2.7.2.686 [id number] 134 [id number] [facility] 2024-01-11 14:00:00 2024-01-11 13:57:01 Outpatient R JESSICA MOCTEZUMA [facility] [id number] [facility] 2023-09-07 00:00:00 2023-09-07 00:00:00 Patient Secure Msg Doctor Unassigned, Kane [facility] 1.2840.114 350.1.13.10 4.2.7.2.686 [id number] [facility] 2023-09-06 14:15:00 2023-09-06 14:30:00 Lens Inserter Visit 2, Adc Lab Jessica Moctezuma [facility] 1.2.840.114 350.1.13.10 4.2.7.2.686 [id number] [facility] 2023-09-06 13:30:00 2023-09-06 13:48:51 Outpatient R JESSICA MOCTEZUMA [facility] [id number] [facility] 2023-09-06 13:30:00 2023-09-06 13:48:51 Office Visit Jessica Moctezuma [facility] 1.2.840.114 350.1.13.10 4.2.7.2.686 [id number] [facility] 2023-09-06 00:00:00 2023-09-06 00:00:00 Orders Only Doctor Unassigned, Kane [facility] 1.2.84.114 350.1.13.10 4.2.7.2.686 [id number] [facility] 2022-11-22 00:00:00 2022-11-22 00:00:00 Telephone Jessica Moctezuma Moses [facility] 1.2.840.114 350.1.13.10 4.2.7.2.686 [id number] 134 [id number] [facility] 2022-11-19 14:53:19 2022-11-19 23:59:00 Outpatient R EULALIA SHENA [facility] [id number] [facility] 2022-11-19 14:53:19 2022-11-19 23:59:00 Hospital Encounter Eulalia Shena [facility] 1.2840.114 350.1.13.10 4.2.7.2.686 [id number] [facility] 2022-11-15 15:00:00 2022-11-15 15:25:06 Outpatient R EULALIA SHENA [facility] [id number] [facility] 2022-11-15 15:00:00 2022-11-15 15:25:06 Office Visit Eulalia Shena [facility] 1.2.840.114 350.1.13.10 4.2.7.2.686 [id number] [facility] 2022-11-15 00:00:00 2022-11-15 00:00:00 Orders Only Doctor Unassigned, Kane [facility] 1.2840.114 350.1.13.10 4.2.7.2.686 [id number] [facility] 2022-11-15 00:00:00 2022-11-15 00:00:00 Telephone Shena Esteban [facility] 1.2.840.114 350.1.13.10 4.2.7.2.686 [id number] 134 [id number] [facility] 2022-09-06 14:30:00 2022-09-06 14:45:00 Lens Inserter Visit 2, Adc Lab Jessica Moctezuma [facility] PROFESSIO NAL BUILDING 1.2.840.114 350.1.13.10 4.2.7.2.686 [id number] [facility] 2022-09-06 13:30:00 2022-09-06 14:13:20 Outpatient R JESSICA MOCTEZUMA [facility] [id number] [facility] 2022-09-06 13:30:00 2022-09-06 14:13:20 Office Visit Jessica Moctezuma [facility] PROFESSIO [facility] BUILDING 1.2.840.114 350.1.13.10 4.2.7.2.686 [id number] 134 [id number] [facility] 2022-09-06 00:00:00 2022-09-06 00:00:00 Orders Only Doctor Unassigned, [place] [facility] 1.2.840.114 350.1.13.10 4.2.7.2.686 [id number] [facility] 2022-08-28 00:00:00 2022-08-28 00:00:00 Outpatient LISTER_MELI [facility] 2022-08-25 00:00:00 2022-08-25 00:00:00 Outpatient LISTER_MELI [facility] 2022-08-25 00:00:00 2022-08-25 00:00:00 Osmani Mejia: [place] [address] , Ph. [facility] [id number] [facility] 2022-07-26 15:00:00 2022-07-26 15:00:00 Outpatient DARREN SANDS [facility] [id number] [facility] 2022-07-06 00:00:00 2022-07-06 11:40:12 Outpatient [facility] [id number] [facility] 2022-07-06 10:30:00 2022-07-06 11:38:32 Office Visit Sands Darren [facility] [place] 1.2.840.114 350.1.13.58 9.2.7.2.686 [id number] [facility] 2022-06-29 11:00:00 2022-06-29 11:00:00 Outpatient ILEANA DOW [facility] [id number] [facility] 2022-03-15 13:45:00 2022-03-15 14:40:48 Outpatient R JESSICA MOCTEZUMA [facility] [id number] [facility] 2022-03-15 13:45:00 2022-03-15 14:40:48 Office Visit Rhianna Jessica [facility] 1..840.114 350.1.13.10 4.2.7.2.686 [id number] 134 [id number] [facility] 2022-03-15 13:45:00 2022-03-15 14:40:48 Outpatient R JESSICA MOCTEZUMA [facility] [id number] [facility] 2022-03-15 00:00:00 2022-03-15 00:00:00 Telephone Moctezuma Jessica [facility] 1.2.840.114 350.1.13.10 4.2.7.2.686 [id number] 134 [id number] [facility] 2022-03-11 00:00:00 2022-03-11 00:00:00 Refill Jessica Moctezuma [facility] 1.2.840.114 350.1.13.10 4.2.7.2.686 [id number] 134 [id number] [facility] 2022-03-08 02:38:00 2022-03-08 02:38:00 Outpatient IVLLA NEWMAN [id number] [facility] 2022-02-16 13:45:00 2022-02-16 14:01:10 Office Visit Jessica Moctezuma [facility] PROFESS[facility] NAL BUILDING 1.2840.114 350.1.13.10 4.2.7.2.686 [id number] [facility] 2022-02-16 13:45:00 2022-02-16 14:01:10 Outpatient N JESSICA MOCTEZUMA [facility] [id number] [facility] 2022-02-16 13:45:00 2022-02-16 13:45:00 Outpatient N JESSICA MOCTEZUMA [facility] [id number] [facility] 2022-01-12 13:00:00 2022-01-12 13:16:10 [id number] 2022-01-12 13:00:00 2022-01-12 13:16:10 Routine Visit Jessica Moctezuma [facility] PROFESS[facility] NAL BUILDING 1.2.840.114 350.1.13.10 4.2.7.2.686 [id number] 134 [id number] [facility] 2022-01-12 00:00:00 2022-01-12 00:00:00 Orders Only Doctor Unassigned, [place] [facility] 1.284.114 350.1.13.10 4.2.7.2.686 [id number] [facility] 2021-12-08 11:50:00 2021-12-10 17:30:00 Inpatient P JESSICA MOCTEZUMA [facility] [id number] [facility] 2021-12-08 11:50:00 2021-12-10 17:30:00 Hospital Encounter Jessica Moctezuma [facility] 1.2.840.114 350.1.13.10 4.2.7.2.686 [id number] [facility] 2021-12-08 11:50:00 2021-12-10 17:30:00 Inpatient P JESSICA MOCTEZUMA [facility] [id number] [facility] 2021-12-09 05:52:00 2021-12-09 17:02:00 Anesthesia Event Rickie reich, Brandon Kessler, Jeison [facility] 1..114 350.1.13.10 4.2.7.2.686 [id number] [facility] 2021-12-07 10:30:00 2021-12-07 10:45:00 Laboratory Only Only, Adc Test Zina Drew [facility] 1..114 350.1.13.10 4.2.7.2.686 [id number] [facility] 2021-12-07 10:30:00 2021-12-07 10:30:00 Outpatient ZINA RANDALL [facility] [id number] [facility] 2021-12-07 10:30:00 2021-12-07 10:30:00 Outpatient ZINA RANDALL [facility] [id number] [facility] 2021-12-03 12:07:00 2021-12-03 17:00:00 Outpatient P JESSICA MOCTEZUMA [facility] [id number] [facility] 2021-12-03 12:07:00 2021-12-03 17:00:00 Hospital Encounter Jessica Moctezuma [facility] 1..114 350.1.13.10 4.2.7.2.686 [id number] [facility] 2021-12-03 00:00:00 2021-12-03 00:00:00 Telephone Jessica Moctezuma [facility] PROFESSIO NAL BUILDING 1..114 350.1.13.10 4.2.7.2.686 [id number] 134 [id number] [facility] 2021-12-02 11:00:00 2021-12-02 11:23:28 Outpatient R JESSICA MOCTEZUMA [facility] [id number] [facility] 2021-12-02 11:00:00 2021-12-02 11:23:28 [facility]ine [facility] 1.2.840.114 350.1.13.10 4.2.7.2.686 [id number] 134 [id number] [facility] 2021-12-01 10:15:00 2021-12-01 11:00:00 Lens Inserter Visit Ultrasound, Adc [place] [facility] BUILD[facility] 1.2.840.114 350.1.13.10 4.2.7.2.686 [id number] 134 [id number] [facility] 2021-12-01 10:15:00 2021-12-01 10:54:25 Lens Inserter Visit Ultrasound, Adc [place] [facility] 1.2.840.114 350.1.13.10 4.2.7.2.686 [id number] 134 [id number] [facility] 2021-12-01 10:15:00 2021-12-01 10:15:00 Outpatient P [facility] [id number] [facility] 2021-11-26 13:45:00 2021-11-26 14:16:01 Outpatient R JESSICA MOCTEZUMA [facility] [id number] [facility] 2021-11-26 13:45:00 2021-11-26 14:16:01 Routine Visit Jessica Moctezuma [facility] BU[facility] 1.2.840.114 350.1.13.10 4.2.7.2.686 [id number] 134 [id number] [facility] 2021-11-22 00:32:00 2021-11-22 07:05:00 Outpatient X JESSICA MOCTEZUMA [facility] [id number] [facility] 2021-11-22 00:32:00 2021-11-22 07:05:00 Emergency Dreelmira, Jessica Moeller [facility] 1.20.114 350.1.13.10 4.2.7.2.686 [id number] [facility] 2021-11-19 14:00:00 2021-11-19 14:00:00 Lens Inserter Visit 2, Adc Lab Jessica Moctezuma [facility] BUILDING 1.2.114 350.1.13.10 4.2.7.2.686 [id number] [facility] 2021-11-19 13:00:00 2021-11-19 13:49:11 Outpatient R JESSICA MOCTEZUMA [facility] [id number] [facility] 2021-11-19 13:00:00 2021-11-19 13:49:11 Routine Visit Jessica Moctezuma [facility] BUILDING 1.20.114 350.1.13.10 4.2.7.2.686 [id number] 134 [id number] [facility] 2021-11-19 00:00:00 2021-11-19 00:00:00 Orders Only Doctor Unassigned, [place] [facility] 1.2840.114 350.1.13.10 4.2.7.2.686 [id number] [facility] 2021-11-11 14:50:00 2021-11-11 19:52:00 Outpatient P JESSICA MOCTEZUMA [facility] [id number] [facility] 2021-11-11 14:50:00 2021-11-11 19:52:00 Hospital Encounter Jessica Moctezuma [facility] 1.20.114 350.1.13.10 4.2.7.2.686 [id number] [facility] 2021-11-11 00:00:00 2021-11-11 00:00:00 Patient Secure Noni Davis [facility] 1.2.840.114 350.1.13.10 4.2.7.2.686 [id number] 134 [id number] [facility] 2021-11-11 00:00:00 2021-11-11 00:00:00 Telephone Jessica Moctezuma [facility] PROFESS[facility] NAL BUILDING 1..840.114 350.1.13.10 4.2.7.2.686 [id number] 134 [id number] [facility] 2021-11-09 11:49:00 2021-11-09 16:12:00 Outpatient X RHIANNA JESSICA [facility] [id number] [facility] 2021-11-09 11:49:00 2021-11-09 16:12:00 Emergency Jessica Moctezuma [facility] 1.840.114 350.1.13.10 4.2.7.2.686 [id number] [facility] 2021-11-05 13:15:00 2021-11-05 14:03:39 Outpatient R MOCTEZUMA JESSICA [facility] [id number] [facility] 2021-11-05 13:15:00 2021-11-05 14:03:39 [facility] 1..840.114 350.1.13.10 4.2.7.2.686 [id number] 134 [id number] [facility] 2021-11-03 10:00:00 2021-11-03 10:33:52 Outpatient P MARIE CORBETT [facility] [id number] [facility] 2021-11-03 10:00:00 2021-11-03 10:33:52 Lens Inserter Visit Ultrasound, Adc Mfm [facility] 1..840.114 350.1.13.10 4.2.7.2.686 [id number] 134 [id number] [facility] 2021-10-22 10:45:00 2021-10-22 11:10:37 Outpatient R RHIANNA JESSICA [facility] [id number] [facility] 2021-10-22 10:15:54 2021-10-22 11:10:37 Routine Visit Jessica Moctezuma [facility] BUILDING 1..840.114 350.1.13.10 4.2.7.2.686 [id number] [facility] 2021-10-20 00:00:00 2021-10-20 00:00:00 Orders Only Doctor Unassigned, [place] [facility] 1..840.114 350.1.13.10 4.2.7.2.686 [id number] [facility] 2021-10-12 15:45:00 2021-10-12 15:08:48 Outpatient R MOCTEZUMAJESSICA [facility] [id number] [facility] 2021-10-12 15:45:00 2021-10-12 15:08:48 Outpatient R MOCTEZUMAJESSICA [facility] [id number] [facility] 2021-10-12 14:48:06 2021-10-12 15:08:48 Routine Visit Jessica Moctezuma [facility] BUILDING 1..840.114 350.1.13.10 4.2.7.2.686 [id number] [facility] 2021-10-08 14:38:00 2021-10-08 19:07:00 Outpatient P RHIANNA [facility] [id number] [facility] 2021-10-08 14:38:00 2021-10-08 19:07:00 Outpatient P JESSICA MOCTEZUMA [facility] [id number] [facility] 2021-10-08 14:38:00 2021-10-08 19:07:00 Hospital Encounter Jessica Moctezuma [facility] 1.2.840.114 350.1.13.10 4.2.7.2.686 [id number] [facility] 2021-10-08 00:00:00 2021-10-08 00:00:00 Orders Only Doctor Unassigned, [place] [facility] 1.2.840.114 350.1.13.10 4.2.7.2.686 [id number] [facility] 2021-09-30 00:00:00 2021-09-30 00:00:00 Telephone Jessica Moctezuma [facility]ILD[facility] 1.2840.114 350.1.13.10 4.2.7.2.686 [id number] 134 [id number] [facility] 2021-09-28 14:00:00 2021-09-28 15:08:28 Outpatient R JESSICA MOCTEZUMA [facility] [id number] [facility] 2021-09-28 13:06:12 2021-09-28 15:08:28 Initial Visit Jessica Moctezuma [facility] BUILDING 1.2.840.114 350.1.13.10 4.2.7.2.686 [id number] 134 [id number] [facility] 2021-09-28 00:00:00 2021-09-28 00:00:00 Orders Only Doctor Unassigned, [place] [facility] 1.2.840.114 350.1.13.10 4.2.7.2.686 [id number] [facility] 2021-09-22 00:00:00 2021-09-22 00:00:00 Telephone Jessica [facility] 1.2.840.114 350.1.13.10 4.2.7.2.686 [id number] 134 [id number] [facility] 2021-09-14 00:00:00 2021-09-14 00:00:00 Orders Only Doctor Unassigned, [place] [facility] 1.2.840.114 350.1.13.10 4.2.7.2.686 [id number] [facility] 2021-08-25 00:00:00 2021-08-25 00:00:00 Orders Only Doctor Unassigned, [place] [facility] 1.2.840.114 350.1.13.10 4.2.7.2.686 [id number] [facility] 2021-02-08 11:52:00 2021-02-08 11:52:00 Outpatient CHAPIN_NIKOLEI [facility]SA [facility] [id number] [facility] 2021-02-06 02:51:00 2021-02-06 02:51:00 Outpatient CHAPIN_NIKOLEI [facility] [id number] [facility] 2021-02-06 00:00:00 2021-02-06 00:00:00 Sherrill Perez, SENIOR IT PROJECT MANAGER: [address] [place] [address] , Ph. [facility] ELECTRIC KNIFE OPERATOR [id number] [facility] 2018-07-26 16:30:00 2018-07-26 16:30:00 Appointhuong t; DARREN SANDS M.D. SHAH, VISHAL, M.D. UTP UTP [id number] [facility] 2018-06-20 08:15:00 2018-06-20 08:15:00 Appointhuong t; DARREN SANDS M.D. SHAH, VISHAL, M.D. UTP UTP [id number] [facility] 2018-04-18 08:15:00 2018-04-18 08:15:00 Appointmen t; ILEANA DOW, SENIOR IT PROJECT MANAGER AUBRIE DOWN, SENIOR IT PROJECT MANAGER UTP UTP [id number] [facility] 2018-03-07 08:15:00 2018-03-07 08:15:00 Appointmen t; AUBRIE DOWN, SENIOR IT PROJECT MANAGER AUBRIE DOWN, SENIOR IT PROJECT MANAGER [facility] UTP [id number] [facility] 2018-02-06 08:15:00 2018-02-06 08:15:00 Appointmen t; DARREN SANDS M.D. SHAH, VISHAL, M.D. UTP UTP [id number] [facility] 2018-01-20 09:15:00 2018-01-20 09:15:00 Appointmen t; DARREN SANDS M.D. SHAH, VISHAL, M.D. UTP UTP [id number] [facility] 2017-12-28 15:15:00 2017-12-28 15:15:00 Appointmen t; DARREN SANDS M.D. SHAH, VISHAL, M.D. [facility] UTP [id number] [facility] 2017-08-23 13:45:00 2017-08-23 13:45:00 Appointmen t; NYDIA LINK NELSON UTP UTP [id number] [facility] 2017-07-12 10:30:00 2017-07-12 10:30:00 Appointmen t; DARREN SANDS M.D. SHAH, VISHAL, M.D. [facility] UTP [id number] [facility] 2017-05-19 13:30:00 2017-05-19 13:30:00 Appointmen t; DARREN SANDS M.D. SHAH, VISHAL, M.D. [facility] UTP [id number] [facility] 2017-05-06 11:00:00 2017-05-06 11:00:00 Appointmen t; BHAVANI LANGFORD JEFFREY [facility] UTP [id number] [facility] Results Test Description Test Time Test Comments Results Result Co mments Source [facility] and SARS-CoV+SARS-CoV-2 (COVID-19) Ag panel - Upper respiratory specimen byRapid [id number] 14:37:00* Test Item Value Reference Range Interpretation Comme nts COVID (test code = COVID) negative FLU A (test code = FLU A) negative FLU B (test code = FLU B) negative [facility], [id number] 14:31:00* Test Item Value Reference Range Interpretation Comme nts Leukocytes (test code = Leukocytes) Negative Nitrite (test code = Nitrite) negative Protein (test code = Protein) Trace pH (test code = pH) 7.0 Blood (test code = Blood) Negative Specific [place] (test code = Specific [place]) 1.025 Ketone (test code = Ketone) Negative Glucose (test code = Glucose) Negative Appearance (test code = Appearance) Clear Color (test code = Color) Dark Yellow [facility] [id number] 18:35:00* Test Item Value Reference Range Interpretation Comme nts POCT PREG (test code = 1605) Negative On board controls acceptable with C Line (test code = 3574) Yes POCT PREG LOT # (test code = 3575) POCT PREG TEST DATE ( test code = 3576) [facility] [id number] 18:35:00* Test Item Value Reference Range Interpretation Comme nts POCT PREG (test code = 1605) Negative On board controls acceptable with C Line (test code = 3574) Yes POCT PREG LOT # (test code = 3575) POCT PREG TEST DATE ( test code = 3576) [facility] [id number] 21:27:00* Test Item Value Reference Range Interpretation Comme nts POCT PREG (test code = 1605) Negative On board controls acceptable with C Line (test code = 3574) Yes POCT PREG LOT # (test code = 3575) POCT PREG TEST DATE ( test code = 3576) [facility] [id number] 21:27:00* Test Item Value Reference Range Interpretation Comme nts POCT PREG (test code = 1605) Negative On board controls acceptable with C Line (test code = 3574) Yes POCT PREG LOT # (test code = 3575) POCT PREG TEST DATE ( test code = 3576) [facility] [id number] 19:11:00* Test Item Value Reference Range Interpretation Comme nts POCT PREG (test code = 1605) Negative On board controls acceptable with C Line (test code = 3574) Yes POCT PREG LOT # (test code = 3575) POCT PREG TEST DATE ( test code = 3576) [facility] [id number] 19:11:00* Test Item Value Reference Range Interpretation Comme nts POCT PREG (test code = 1605) Negative On board controls acceptable with C Line (test code = 3574) Yes POCT PREG LOT # (test code = 3575) POCT PREG TEST DATE ( test code = 3576) [facility] URINALYSIS W/O SPECIFIC [id number] 19:13:00* Test Item Value Reference Range Interpretation [...] = 3257) negative Negative - Negati ve [facility] Notes Date/Time Note Provider Source 2025-03-06 10:13:23 Noted. T [facility] 2025-03-06 08:17:26 Monique Mabry is a 25 year old female patient new ob will is scheduled for 03/29 with [place] LMP 02/05/2025 2x home positive Caron Phan [facility] 2024-01-27 10:12:03 Name and verified. Pt stated that the pharmacy did not get OCP rx. Called pharmacy- they have rx and will fill it. ATC pt. LM on VM ELENA CHACON RN 01/27/2024 10:13 AM Elena Chacon RN [facility] 2024-01-27 09:53:24 Patient states pharmacy did not receive her prescription for control. Valerie Barakat [facility]
[2025-03-14 12:54] LABS: Specific Gravity > 1.030 (1.005-1.030)
[2025-03-14 12:55] LABS: Specific Gravity > 1.030 (1.005-1.030); Urine Bacteria None Seen /HPF (<20); Urine Bilirubin NEGATIVE (Negative); Urine Blood Negative (Negative); Urine Clarity Extremely Turbid (Clear); Urine Color Yellow (Yellow); Urine Crystals Unidentified Few /HPF (None Seen); Urine Culture Reflex Order REFLEXED; Urine Glucose NEGATIVE (Negative); Urine Ketones 1+ (Negative); Urine Microscopic Reflex YN ORDER UMIC; Urine Mucus 1+ /HPF (None Seen); Urine Nitrite NEGATIVE (Negative); Urine Protein TRACE (Negative); Urine Urobilinogen Normal (Normal); Urine WBC 20-50 /HPF (<5); Urine WBC Clump Rare /HPF (None Seen); Urine Yeast (Budding) Trace /HPF (None Seen); Urine pH 6.5 (5.0-7.0)
[2025-03-14 13:02] LABS: Absolute Lymphocytes (CBC) 0.4 K/uL (0.7-4.9); Absolute Monocytes 0.5 K/uL (0.1-1.3); Basophils % 0.2 % (0-1.3); Eosinophils % 0.2 % (0-4.4); Hematocrit 41.2 % (36.0-45.0); Hemoglobin 14.2 g/dL (12.0-15.0); Lymphocytes % 3.2 % (15.3-44.8); MCH 29.2 pg (27.0-35.0); MCHC 34.3 g/dL (32.0-36.0); MCV 85.1 fL (80-100); MPV 8.7 fL (7.6-11.3); Monocytes % 4.1 % (3.3-12.3); Neutrophils % 92.3 % (41.7-73.7); Platelets 247 thou/uL (152-406); RBC Red Blood Cell Count 4.85 M/uL (3.86-4.86); Red Cell Distribution Width 12.2 % (12.1-15.2)
--- NOTE | 2025-03-14 13:06 | RAD REPORT ---
EXAM: Right upper quadrant ultrasound. CLINICAL HISTORY: Abd pain;Nausea / vomiting COMPARISON: None. FINDINGS: Gallbladder: Normal. Bile ducts: No intrahepatic or extrahepatic biliary dilatation. Common bile duct measures 3 mm. Limited imaging of the liver shows no concerning finding. IMPRESSION: Unremarkable exam.
[2025-03-14 13:21] LABS: ALT/SGPT 22 U/L (13-56); Albumin 4.1 g/dL (3.4-5.0); Albumin/Globulin Ratio 1.1 (1.1-1.8); Alkaline Phosphatase 66 U/L (45-117); Anion Gap 11.7 mEq/L (5.0-15.0); BUN Blood Urea Nitrogen 10 mg/dL (7-18); Bicarbonate 24 mEq/L (21-32); Bilirubin Total 0.8 mg/dL (0.2-1.0); Globulin 3.7 g/dL (2.3-3.5); Glomerular Filtration Rate 118 ml/min (=/>90); Glucose Level 113 mg/dL (74-106); Lipase 27 U/L (13-75); Potassium 3.7 mEq/L (3.5-5.1); Protein, Total 7.8 g/dL (6.4-8.2); Sodium Level 138 mEq/L (136-145)
[2025-03-14 13:23] LABS: AST/SGOT < 10 U/L (15-37)
[2025-03-14] MEDS ORDERED: NA CHLORIDE 0.9% 1,000 ML ONE (13:27)
[2025-03-14] MEDS ORDERED: ONDANSETRON 4 MG/2 ML VIAL ONE (13:27)
--- NOTE | 2025-03-14 13:55 | RAD REPORT ---
EXAMINATION: TRANSVAG OB COMPARISON: None. HISTORY: , abd pain TECHNIQUE: Real-time ultrasound was performed through the pelvis. A transvaginal scan was performed t o better visualize the intrauterine contents and adnexa. FINDINGS: Small cystic structure is seen in the fundal endometrium with mean sac diameter of 4 mm corresponding to 5 weeks 1 day gestational age. There is no yolk sac or embryo detected. Small amount of adjacent fluid is seen. Both ovaries are normal in size, shape and echotexture with normal blood flow. IMPRESSION: Small cystic structure is seen in the fundal endometrium which may be an early gestational sac. No ev idence of a yolk sac or embryo yet detected. Recommend serial hCG follow-up as well as follow-up pelvic sonography in 10-12 days for further evaluation.
--- NOTE | 2025-03-14 14:36 | EDPHYS ---
Physician Documentation [facility] Name: Monique Reina Age: 25 yrs Sex: Female : 2000 Arrival Date: 03/14/2025 Time: 11:52 Bed 9 Private MD: ED Physician Christiano Layne HPI: 03/14 14:31 This 25 yrs old Female presents to ER via Ambulatory with complaints of rn Nausea/Vomiting, Abdominal Pain. 14:32 The patient presents to the emergency department with nausea, vomiting. Onset: The rn symptoms/episode began/occurred today. The symptoms are aggravated by nothing. The symptoms are alleviated by nothing. Severity of symptoms: At their worst the symptoms were mild in the emergency department the symptoms are unchanged. The patient has not experienced similar symptoms in the past. Patient reports nausea and vomiting since this morning, thinks she is , took 2 test at home and both positive. Here to confirm . Denies any fever or chills. No diarrhea. Patient reports epigastric abdominal cramping. No known gallbladder problems.. 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 - Hospitalizations: : No recent hospitalization is reported. - Social history:: Smoking status: Patient denies any tobacco usage or history of. ROS: 14:32 Constitutional: Negative for fever, chills, and weight loss, Cardiovascular: Negative rn for chest pain, palpitations, and edema, Respiratory: Negative for shortness of breath, cough, wheezing, and pleuritic chest pain, Abdomen/GI: Positive for abdominal cramping and epigastric abdominal pain with nausea and vomiting Back: Negative for injury and pain, : Negative for injury, bleeding, discharge, and swelling, MS/Extremity: Negative for injury and deformity, Neuro: Negative for headache, weakness, numbness, tingling, and seizure, Exam: 14:32 Constitutional: This is a well developed, well nourished patient who is awake, alert, rn and in no acute distress. Cardiovascular: Tachycardic, regular. No pulse deficits. Respiratory: No increased work of breathing, no retractions or nasal flaring. Abdomen/GI: Soft, mild epigastric tenderness. No right lower quadrant or suprapubic tenderness. No rebound or guarding. No peritoneal signs. Negative Rodriguez Vital Signs: 12:20 BP 122 / 62; Pulse 102; Resp 17; Temp 98; Pulse Ox 100% ; Weight 68.04 kg; Height 5 ft. jl7 3 in. ; Pain 10/10; 12:20 Body Mass Index 26.57 (68.04 kg, 160.02 cm) jl7 12:20 Pain Scale: Adult jl7 MDM: 12:06 Medical Screening Exam initiated rn 14:32 Differential diagnosis: Nonspecific abd pain, gastritis, cholecystitis, pancreatitis, rn Urinary tract infection, abdominal pain related to . Data reviewed: vital signs, nurses notes, lab test result(s), radiologic studies, ultrasound, and as a result, I will discharge patient. Counseling: I had a detailed discussion with the patient and/or guardian regarding the historical points, exam findings, and any diagnostic results supporting the discharge/admit diagnosis, lab results, radiology results, the need for outpatient follow up, to return to the emergency department if symptoms worsen or persist or if there are any questions or concerns that arise at home. Response to treatment: the patient's symptoms have markedly improved after treatment, and as a result, I will discharge patient. Special discussion: I discussed with the patient/guardian in detail that at this point there is no indication for admission to the hospital. It is understood, however, that if the symptoms persist or worsen the patient needs to return immediately for re-evaluation. Based on the history and exam findings, there is no indication for further emergent testing or inpatient evaluation. I discussed with the patient/guardian the need to see the OB Gyne specialist for further evaluation of the symptoms. ED course: Ultrasound gallbladder negative for cholelithiasis or cholecystitis. Transvaginal ultrasound shows likely early , consistent with 5 weeks and 1 day. Patient does not have any vaginal bleeding or signs or symptoms of miscarriage. Patient is afebrile and has epigastric abdominal pain, not likely something surgical like appendicitis. Return precautions given and understood regarding need to return if symptoms worsen, fever, or migrates to the right lower quadrant at which point she would need an MRI to rule out appendicitis. I have personally reviewed all of the results, including but not limited to blood tests and imaging deemed necessary to safely discharge this patient at this time. All results given to and printed out for patient. I personally went over all the results with the patient and answered all questions. Patient will follow-up with PCP and or specialist as discussed. Return precautions given and understood.. 03/14 12:11 Order name: CBC with Diff rn 03/14 12:11 Order name: CMP; Complete Time: 14:08 rn 03/14 12:11 Order name: Lipase; Complete Time: 14:08 rn 03/14 12:11 Order name: Test, Urine; Complete Time: 14:08 rn 03/14 12:11 Order name: Urinalysis w/ reflexes; Complete Time: 14:08 rn 03/14 12:59 Order name: Urine Culture [facility] 03/14 13:06 Order name: CBC Smear Scan [facility] 03/14 12:24 Order name: US Abdomen Limited; Complete Time: 14:08 rn 03/14 13:32 Order name: TRANSVAG OB; Complete Time: 14:08 [facility] 03/14 12:11 Order name: IV Saline Lock; Complete Time: 13:02 rn 03/14 12:11 Order name: Labs collected and sent; Complete Time: 13:02 rn Administered Medications: 13:42 Drug: NS 0.9% IV 1000 ml IV at 1 bolus Per protocol; to be given as a bolus over 60 ss minutes Route: IV; Rate: 1 bolus; Site: right antecubital; 14:57 Follow up: IV Status: Completed infusion; IV Intake: 1000ml ss 13:43 Drug: Ondansetron IVP 4 mg IVP once; over 2 minutes Route: IVP; Site: right antecubital;ss 14:57 Follow up: Response: No adverse reaction 14:56 Drug: Macrobid PO 100 mg PO once; administer with food Route: PO; ss 14:56 Follow up: Response: Medication Administered at Departure ss Disposition Summary: 03/14/25 14:35 Discharge Ordered Notes: Location: Home rn Problem: new rn Symptoms: have improved rn Condition: Stable rn Diagnosis - Nausea with vomiting, unspecified rn - Abdominal pain, unspecified rn - related conditions, unspecified, first trimester rn - UTI/ Urinary tract infection, site not specified rn Followup: rn - With: Private Physician - When: As needed - Reason: Recheck today's complaints, Re-evaluation by your physician Discharge Instructions: - Discharge Summary Sheet rn - Abdominal Pain, Adult rn - Abdominal Pain During rn - Urinary Tract Infection, Adult rn - First Trimester of rn Forms: - Medication Reconciliation Form rn - Antibiotic employment law attorney - Prescription Opioid Use rn - Patient Portal Instructions rn - Leadership Thank You Letter rn - Work release form eb Prescriptions: - Macrobid 100 mg Oral Capsule - take 1 capsule ORAL route every 12 hours for 7 days; 14 capsule; Refills: 0, rn Product Selection Permitted Signatures: Dispatcher [employer] EDMS Christiano Layne MD MD rn Blanchard, Shelby, RN RN ss Jazz Buckley RN RN jl7 Corrections: (The following items were deleted from the chart) 12:24 12:24 Abdomen Limited+US.RAD.BRZ ordered. EDMS EDMS 12:45 12:12 Abdomen Pelvis W Con+CT.RAD.BRZ ordered. EDMS EDMS 13:03 12:44 OB Limited+US.RAD.BRZ ordered. EDMS EDMS 13:32 13:03 Transvaginal Study Probe ordered. EDMS EDMS
--- NOTE | 2025-03-14 14:36 | ER ---
Nurse's Notes [facility] Name: Monique Reina Age: 25 yrs Sex: Female : 2000 Arrival Date: 03/14/2025 Time: 11:52 Bed 9 Private MD: Diagnosis: Nausea with vomiting, unspecified;Abdominal pain, unspecified; related conditions, unspecified, first trimester;UTI/ Urinary tract infection, site not specified Presentation: 03/14 12:20 Chief complaint: Patient states: Epigastric pain, radiates to lower abdomen, N/V since jl7 0400 this morning. Took 2 tests at home and both were positive. Coronavirus screen: At this time, the client does not indicate any symptoms associated with coronavirus-19. Ebola Screen: No symptoms or risks identified at this time. Initial Sepsis Screen: Does the patient meet any 2 criteria? No. Patient's initial sepsis screen is negative. Does the patient have a suspected source of infection? No. Patient's initial sepsis screen is negative. Risk Assessment: Do you want to hurt yourself or someone else? Patient reports no desire to harm self or others. Onset of symptoms was March 14, 2025. 12:20 Method Of Arrival: Ambulatory [facility] 12:20 Acuity: BOUCHRA 3 jl7 Triage Assessment: 12:20 General: Appears in no apparent distress. uncomfortable, Behavior is calm, cooperative, jl7 appropriate for age. Pain: Complains of pain in epigastric area Pain radiates to right lower quadrant and left lower quadrant Pain currently is 10 out of 10 on a pain scale. GI: Reports nausea, vomiting. FILM MOUNTER: 12:20 LMP 02/05/2025, unknown jl7 Historical: - Allergies: 12:22 NKA; jl7 - Home Meds: 12:22 None [Active]; jl7 - PMHx: 12:22 None; jl7 - Family history:: not pertinent. - Hospitalizations: : No recent hospitalization is reported. - Social history:: Smoking status: Patient denies any tobacco usage or history of. Screenin:30 Abuse screen: Denies threats or abuse. Denies injuries from another. Nutritional ss screening: No deficits noted. Tuberculosis screening: Never had TB. Assessment: 13:30 General: Appears in no apparent distress. comfortable, Behavior is calm, cooperative. ss Neuro: Level of Consciousness is awake, alert, obeys commands, Oriented to person, place, time, situation. Respiratory: Airway is patent Respiratory effort is even, unlabored, Respiratory pattern is regular, symmetrical. GI: Abdomen is non-distended, Reports nausea. Derm: Skin is intact, is healthy with good turgor, Skin is dry, Skin is pink, warm \T\ dry. normal. Vital Signs: 12:20 BP 122 / 62; Pulse 102; Resp 17; Temp 98; Pulse Ox 100% ; Weight 68.04 kg; Height 5 ft. jl7 3 in. ; Pain 10/10; 12:20 Body Mass Index 26.57 (68.04 kg, 160.02 cm) jl7 12:20 Pain Scale: Adult jl7 ED Course: 11:58 Patient arrived in ED. cj3 12:05 Christiano Layne MD is Attending Physician. rn 12:20 Arm band placed on right wrist. jl7 12:22 Triage completed. jl7 12:30 Inserted saline lock: 20 gauge in right antecubital area, using aseptic technique. nh2 Blood collected. Flushed with 10 mL NS. 12:45 US Abdomen Limited In Process Unspecified. EDMS 13:02 Urine Culture Sent. nh2 13:02 CBC with Diff Sent. nh2 13:02 CMP Sent. nh2 13:02 Lipase Sent. nh2 13:30 Patient has correct armband on for positive identification. ss 13:32 TRANSVAG OB In Process Unspecified. EDMS 13:42 Monique Iqbal, RN is Primary Nurse. ss 14:56 No provider procedures requiring assistance completed. IV discontinued, intact, ss bleeding controlled, No redness/swelling at site. Pressure dressing applied. Administered Medications: 13:42 Drug: NS 0.9% IV 1000 ml IV at 1 bolus Per protocol; to be given as a bolus over 60 ss minutes Route: IV; Rate: 1 bolus; Site: right antecubital; 14:57 Follow up: IV Status: Completed infusion; IV Intake: 1000ml ss 13:43 Drug: Ondansetron IVP 4 mg IVP once; over 2 minutes Route: IVP; Site: right antecubital;ss 14:57 Follow up: Response: No adverse reaction ss 14:56 Drug: Macrobid PO 100 mg PO once; administer with food Route: PO; ss 14:56 Follow up: Response: Medication Administered at Departure Medication: 13:30 VIS not applicable for this client. ss Intake: 14:57 IV: 1000ml; Total: 1000ml. Outcome: 14:35 Discharge ordered by . rn 14:56 Discharged to home ambulatory, 14:56 Condition: good 14:56 Discharge instructions given to patient, Instructed on discharge instructions, follow up and referral plans. medication usage, Demonstrated understanding of instructions, follow-up care, medications, Prescriptions given X 1, 15:01 Patient left the ED. Signatures: Dispatcher [employer] EDMS Christiano Layne MD MD rn Blanchard, Shelby, RN RN ss Leal, Jahala, RN RN jl7 Yuval Wan, Barbara Mojica 3
[2025-03-14] MEDS ORDERED: NITROFURAN MACRO 100 MG CAP PO ONE (14:46)
[2025-03-14 15:07] LABS: Platelet Estimate ADEQ; White Blood Cell Scan OK (OK)
[2025-03-14 15:08] LABS: Blood Morphology Comment NOT SEEN (NOT SEEN)
[2025-03-14 15:27] VITALS: BP 122/62; TEMP 98; O2SAT 100
== END 2025-03-14 15:01 | disposition home or self-care (01) ==
LOC: ER 11:52
DX: O23.41 Unspecified infection of urinary tract in pregnancy, first trimester (principal); Z3A.01 Less than 8 weeks gestation of pregnancy
CPT/HCPCS: 96361; 87088; 85025; 81001; 87086; 36415; 81025; 83690; 80053; 76705; 76813; 96374; 99284; J2405; J7030